=== PATIENT | male | born 1935 | race Caucasian/White ===

== ENCOUNTER 2022-08-07 14:49 | Inpatient (IN) | payer OTHER ==
[2022-08-07] MEDS ORDERED: ACETAMINOPHEN 1000 MG/100 ML BAG IVPB ONE (15:46)
[2022-08-07] MEDS ORDERED: ACETAMINOPHEN INJECTION 100 ML IVPB ONE (15:54)
[2022-08-07] MEDS ORDERED: VANCOMYCIN 1 GM in D5W (PRE-DOCKED) 1,000 MG/250 ML IVPB ONE (15:58)
[2022-08-07] MEDS ORDERED: PIPERACILLIN/TAZOB 3.375 GM 3.375 GM in DEXTROSE 5%-WATER - 50 ML IVPB ONE (15:59)
[2022-08-07] MEDS ORDERED: AZITHROMYCIN IVPB 500 MG in DEXTROSE 5%-WATER - 250 ML IVPB ONE (16:00)
[2022-08-07] MEDS ORDERED: VANCOMYCIN/WATER FOR INJ (PEG) 1,000 MG/200 ML BAG IVPB ONE (16:13)
[2022-08-07] MEDS ORDERED: PIPERACILLIN/TAZOB 3.375 GM 3.375 GM/50 ML BAG IVPB ONE (16:14)
[2022-08-07] MEDS ORDERED: AZITHROMYCIN IVPB 500 MG/250 ML BAG IVPB ONE (16:14)
[2022-08-07 16:38] LABS: VENOUS O2 SATURATION 92.2 % (70-80); VENOUS PCO2 40.5 mmHg (38-52); VENOUS PH 7.341 (7.310-7.410)
[2022-08-07 16:40] LABS: BASO % 0.1 % (0-2.0); EOS % 0.1 % (0-4.5); HEMATOCRIT 24.8 % (35.4-49); HEMOGLOBIN 8.3 GM/dL (11.7-16.9); LYMPH % 9.1 % (8-40); MCH 29.9 pg (25.7-33.7); MCHC 33.4 g/dl (32.0-35.9); MEAN CELL VOLUME 89.4 fl (80-96); MEAN PLT VOLUME 7.9 fl (7.5-11.1); MONO % 7.9 % (3.8-10.2); NEUT % 82.8 % (42.8-82.8); PLATELET COUNT 345 10^3/uL (134-434); RBC 2.78 M/mm3 (4.00-5.60); RDW 18.9 % (11.9-15.9); WHITE BLOOD COUNT 15.9 K/mm3 (4.0-10.0)
[2022-08-07 16:49] LABS: INR 1.51 (0.83-1.09); PROTHROMBIN TIME (PATIENT) 17.4 SEC (9.7-13.0)
[2022-08-07 16:52] LABS: ACTIVATED PTT 37.7 SECONDS (25.2-36.5)
[2022-08-07 17:08] LABS: ALBUMIN 1.9 g/dl (3.4-5.0); CALCIUM 8.8 mg/dL (8.5-10.1)
[2022-08-07 17:12] LABS: BILIRUBIN,TOTAL 0.4 mg/dL (0.2-1)
[2022-08-07] MEDS ORDERED: CALCIUM GLUC IN NACL, ISO-OSM 1 GM/50 ML BAG IVPB ONE ×2 (17:14→17:16)
[2022-08-07 18:50] LABS: EPI CELLS >36 /uL (0-25.1); HYALINE CASTS 24 /uL (0-3.1); URINE APPEARANCE CLOUDY; URINE BILIRUBIN NEGATIVE (NEGATIVE); URINE COLOR YELLOW; URINE GLUCOSE (UA) NEGATIVE (NEGATIVE); URINE KETONE NEGATIVE (NEGATIVE); URINE LEUK ESTERASE NEGATIVE (NEGATIVE); URINE NITRITE NEGATIVE (NEGATIVE); URINE PROTEIN 2+ (NEGATIVE); URINE UROBILINOGEN 0.2 mg/dL (0.2-1.0)
[2022-08-07] MEDS: LACTATED RINGERS SOLUTION 1,000 ML/1,000 ML INFUS.BAG IV SCH ×2 (18:54→23:30)
[2022-08-07 19:48] LABS: URINE BACTERIA 228.2 /uL (0-1359); URINE RBC 97.7 /uL (0-23.9); URINE WBC 904.5 /uL (0-25.8)
[2022-08-07] MEDS ORDERED: PANTOPRAZOLE SODIUM 40 MG VIAL IVPUSH STA (22:13)
[2022-08-07] MEDS ORDERED: PANTOPRAZOLE SODIUM 40 MG VIAL ONE (22:23)
[2022-08-07] MEDS ORDERED: ACETAMINOPHEN 650 MG/20.3 ML ORAL SOLUTION (CUPS) PO PRN (22:30)
[2022-08-07] MEDS: MUPIROCIN 2% TOPICAL OINTMENT FOR DECOLONIZATION NS SCH (23:25)
[2022-08-07] MEDS: CHLORHEXIDINE GLUCONATE 4% CLEANSER FOR DECOLONIZATION TP SCH (23:26)
[2022-08-07 23:36] LABS: BASO % 0.2 % (0-2.0); EOS % 0.8 % (0-4.5); HEMATOCRIT 24.4 % (35.4-49); LYMPH % 9.2 % (8-40); MCH 29.1 pg (25.7-33.7); MCHC 32.8 g/dl (32.0-35.9); MEAN CELL VOLUME 88.7 fl (80-96); MEAN PLT VOLUME 7.6 fl (7.5-11.1); MONO % 7.4 % (3.8-10.2); NEUT % 82.4 % (42.8-82.8); PLATELET COUNT 311 10^3/uL (134-434); RBC 2.76 M/mm3 (4.00-5.60); RDW 19.2 % (11.9-15.9); WHITE BLOOD COUNT 13.2 K/mm3 (4.0-10.0)
[2022-08-07 23:57] LABS: CALCIUM 8.5 mg/dL (8.5-10.1)
[2022-08-07 23:59] LABS: ALBUMIN 1.9 g/dl (3.4-5.0); BLOOD UREA NITROGEN 86.1 mg/dL (7-18); MAGNESIUM 1.7 mg/dL (1.8-2.4)
[2022-08-08 00:02] LABS: BILIRUBIN,DIRECT 0.3 mg/dL (0.0-0.2); CREATININE 1.9 mg/dL (0.55-1.3); PHOSPHOROUS 3.3 mg/dL (2.5-4.9)
[2022-08-08 00:03] LABS: BILIRUBIN,TOTAL 0.5 mg/dL (0.2-1); TOT PROT 6.9 g/dl (6.4-8.2)
[2022-08-08] MEDS: DEXMEDETOMIDINE PREMIX 400 MCG/100 ML BAG IVPB SCH ×2 (00:58→14:53)
[2022-08-08] MEDS: PIPERACILLIN/TAZOB 4.5 GM 4.5 GM in DEXTROSE 5%-WATER 100 ML IVPB SCH ×2 (01:00→09:57)
[2022-08-08] MEDS ORDERED: PIPERACILLIN/TAZOBACTAM 4.5 GM VIAL IVPB SCH (02:00)
[2022-08-08] MEDS: HEPARIN NA (PORCINE) 5,000 UNITS/ML 1ML VIAL SQ SCH ×3 (05:07→21:13)
[2022-08-08 07:13] LABS: BASO % 0.2 % (0-2.0); EOS % 1.2 % (0-4.5); HEMATOCRIT 24.9 % (35.4-49); HEMOGLOBIN 8.2 GM/dL (11.7-16.9); LYMPH % 10.3 % (8-40); MCH 29.2 pg (25.7-33.7); MCHC 32.8 g/dl (32.0-35.9); MEAN CELL VOLUME 89.1 fl (80-96); MEAN PLT VOLUME 8.1 fl (7.5-11.1); MONO % 5.9 % (3.8-10.2); NEUT % 82.4 % (42.8-82.8); PLATELET COUNT 312 10^3/uL (134-434); RBC 2.79 M/mm3 (4.00-5.60); RDW 18.8 % (11.9-15.9); WHITE BLOOD COUNT 10.5 K/mm3 (4.0-10.0)
[2022-08-08 07:19] LABS: MAGNESIUM 1.6 mg/dL (1.8-2.4)
[2022-08-08] MEDS ORDERED: MAGNESIUM SULFATE IN WATER 2 GM/50 ML IVPB IVPB ONE (08:30)
[2022-08-08] MEDS: ALBUTEROL SO4 2.5/IPRATROPIUM 0.5 INH SOL 3 ML VIAL.NEB. NEB SCH ×4 (08:50→21:05)
[2022-08-08] MEDS ORDERED: TAMSULOSIN HCL 0.4 MG CAP PO ONE (09:00)
[2022-08-08] MEDS: SODIUM ZIRCONIUM CYCLOSILICATE (LOKELMA) 5 GM PACKET PO SCH (09:59)
[2022-08-08] MEDS ORDERED: AZITHROMYCIN IVPB 500 MG in DEXTROSE 5%-WATER - 250 ML IVPB SCH (10:00)
[2022-08-08] MEDS: MUPIROCIN 2% TOPICAL OINTMENT FOR DECOLONIZATION NS SCH ×2 (10:01→21:13)
[2022-08-08] MEDS: POLYETHYLENE GLYCOL (HEALTHYLAX) 3350 17 GM PACKET PO SCH (10:01)
[2022-08-08] MEDS: ASPIRIN 81 MG CHEWABLE TABLETS PO SCH (10:01)
[2022-08-08] MEDS: metoPROLOL SUCCINATE 25 MG TAB.SR.24H (FP) PO SCH ×2 (10:02→21:14)
[2022-08-08 10:03] LABS: BLOOD UREA NITROGEN 85.9 mg/dL (7-18); CALCIUM 8.8 mg/dL (8.5-10.1)
[2022-08-08 10:07] LABS: CREATININE 1.9 mg/dL (0.55-1.3)
[2022-08-08] MEDS ORDERED: AZITHROMYCIN IVPB 500 MG/250 ML BAG IVPB SCH (10:09)
[2022-08-08 10:10] LABS: N-TERMINAL BNP 3474.8 pg/ml (5-450)
[2022-08-08] MEDS: AZITHROMYCIN IVPB 500 MG/250 ML BAG IVPB SCH (11:44)
[2022-08-08] MEDS ORDERED: VANCOMYCIN 1 GM/200 ML PREMIX BAG IVPB ONE (12:03)
[2022-08-08] MEDS: PIPERACILLIN/TAZOB 2.25 GM 2.25 GM in DEXTROSE 5%-WATER - 50 ML IVPB SCH (17:23)
[2022-08-08] MEDS: LACTATED RINGERS SOLUTION 1,000 ML/1,000 ML INFUS.BAG IV SCH (21:12)
[2022-08-08] MEDS: CHLORHEXIDINE GLUCONATE 4% CLEANSER FOR DECOLONIZATION TP SCH (21:14)
[2022-08-09] MEDS: LACTATED RINGERS SOLUTION 1,000 ML/1,000 ML INFUS.BAG IV SCH
[2022-08-09] MEDS: DEXMEDETOMIDINE PREMIX 400 MCG/100 ML BAG IVPB SCH
[2022-08-09] MEDS: PIPERACILLIN/TAZOB 2.25 GM 2.25 GM in DEXTROSE 5%-WATER - 50 ML IVPB SCH ×3 (01:21→17:02)
[2022-08-09] MEDS: HEPARIN NA (PORCINE) 5,000 UNITS/ML 1ML VIAL SQ SCH (05:15)
[2022-08-09 07:31] LABS: BASO % 0.4 % (0-2.0); EOS % 5.5 % (0-4.5); HEMATOCRIT 23.6 % (35.4-49); HEMOGLOBIN 7.6 GM/dL (11.7-16.9); MCH 29.2 pg (25.7-33.7); MCHC 32.3 g/dl (32.0-35.9); MEAN CELL VOLUME 90.4 fl (80-96); MEAN PLT VOLUME 8.1 fl (7.5-11.1); MONO % 6.6 % (3.8-10.2); NEUT % 74.5 % (42.8-82.8); PLATELET COUNT 284 10^3/uL (134-434); RBC 2.62 M/mm3 (4.00-5.60); RDW 19.1 % (11.9-15.9); WHITE BLOOD COUNT 8.4 K/mm3 (4.0-10.0)
[2022-08-09 07:54] LABS: ALBUMIN 1.6 g/dl (3.4-5.0); BLOOD UREA NITROGEN 79.5 mg/dL (7-18); MAGNESIUM 2.2 mg/dL (1.8-2.4)
[2022-08-09 07:57] LABS: BILIRUBIN,TOTAL 0.3 mg/dL (0.2-1); CREATININE 1.9 mg/dL (0.55-1.3); TOT PROT 6.2 g/dl (6.4-8.2)
[2022-08-09] MEDS: PROPOFOL 1,000,000 MCG/100 ML VIAL IVPB SCH ×2 (08:56→23:39)
[2022-08-09] MEDS: AZITHROMYCIN IVPB 500 MG/250 ML BAG IVPB SCH (09:21)
[2022-08-09] MEDS: ASPIRIN 81 MG CHEWABLE TABLETS PO SCH (09:23)
[2022-08-09] MEDS: APIXABAN 2.5 MG TABLET PO SCH ×2 (09:23→21:23)
[2022-08-09] MEDS: MUPIROCIN 2% TOPICAL OINTMENT FOR DECOLONIZATION NS SCH ×2 (09:23→21:23)
[2022-08-09] MEDS: SODIUM ZIRCONIUM CYCLOSILICATE (LOKELMA) 5 GM PACKET PO SCH (09:23)
[2022-08-09] MEDS: metoPROLOL SUCCINATE 25 MG TAB.SR.24H (FP) PO SCH ×2 (09:23→21:23)
[2022-08-09] MEDS: POLYETHYLENE GLYCOL (HEALTHYLAX) 3350 17 GM PACKET PO SCH (09:24)
[2022-08-09] MEDS: FENTANYL NS IVPB 500 MCG/100 ML BAG IVPB SCH ×3 (09:28→19:57)
[2022-08-09] MEDS: ALBUTEROL SO4 2.5/IPRATROPIUM 0.5 INH SOL 3 ML VIAL.NEB. NEB SCH ×4 (10:58→20:30)
[2022-08-09] MEDS ORDERED: NOREPINEPHRINE BITARTRATE 4 MG/4 ML ML IV ONE (17:33)
[2022-08-09] MEDS ORDERED: NOREPINEPHRINE BITARTRATE/D5W 8 MG/250 ML BAG IVPB SCH ×3 (17:45→20:00)
[2022-08-09] MEDS ORDERED: LACTATED RINGERS SOLUTION 1,000 ML/1,000 ML INFUS.BAG IV ONE (19:57)
[2022-08-09] MEDS: WATER IVPB SCH (21:25)
[2022-08-09] MEDS: DEXTROSE 5% IVPB SCH (21:25)
[2022-08-09] MEDS: NOREPINEPHRINE BITARTRATE IVPB SCH (21:25)
[2022-08-09] MEDS: CHLORHEXIDINE GLUCONATE 4% CLEANSER FOR DECOLONIZATION TP SCH (21:25)
[2022-08-10] MEDS: VANCOMYCIN 250 MG/5 ML ORAL SOLUTION PO SCH ×4 (01:07→19:15)
[2022-08-10] MEDS: PIPERACILLIN/TAZOB 2.25 GM 2.25 GM in DEXTROSE 5%-WATER - 50 ML IVPB SCH ×3 (01:57→18:45)
[2022-08-10] MEDS: ALBUTEROL SO4 2.5/IPRATROPIUM 0.5 INH SOL 3 ML VIAL.NEB. NEB SCH ×4 (07:30→20:45)
[2022-08-10 08:37] LABS: BLOOD UREA NITROGEN 81.7 mg/dL (7-18); MAGNESIUM 2.1 mg/dL (1.8-2.4)
[2022-08-10] MEDS: FENTANYL NS IVPB 500 MCG/100 ML BAG IVPB SCH (09:30)
[2022-08-10 09:55] LABS: HEMATOCRIT 26.1 % (35.4-49); HEMOGLOBIN 8.7 GM/dL (11.7-16.9); MCHC 33.2 g/dl (32.0-35.9); MEAN CELL VOLUME 90.3 fl (80-96); MEAN PLT VOLUME 7.8 fl (7.5-11.1); PLATELET COUNT 334 10^3/uL (134-434); RBC 2.89 M/mm3 (4.00-5.60); RDW 19.5 % (11.9-15.9); WHITE BLOOD COUNT 9.8 K/mm3 (4.0-10.0)
[2022-08-10] MEDS: AZITHROMYCIN IVPB 500 MG/250 ML BAG IVPB SCH (10:00)
[2022-08-10] MEDS: APIXABAN 2.5 MG TABLET PO SCH ×2 (11:13→21:34)
[2022-08-10] MEDS: MUPIROCIN 2% TOPICAL OINTMENT FOR DECOLONIZATION NS SCH ×2 (11:14→21:31)
[2022-08-10] MEDS: ASPIRIN 81 MG CHEWABLE TABLETS PO SCH (11:15)
[2022-08-10] MEDS: POLYETHYLENE GLYCOL (HEALTHYLAX) 3350 17 GM PACKET PO SCH (11:15)
[2022-08-10] MEDS: PANTOPRAZOLE SODIUM 40 MG VIAL IVPUSH SCH (11:15)
[2022-08-10] MEDS: SODIUM ZIRCONIUM CYCLOSILICATE (LOKELMA) 5 GM PACKET PO SCH (11:16)
[2022-08-10] MEDS: metoPROLOL SUCCINATE 25 MG TAB.SR.24H (FP) PO SCH ×2 (11:16→21:34)
[2022-08-10] MEDS: PROPOFOL 1,000,000 MCG/100 ML VIAL IVPB SCH (19:14)
[2022-08-10] MEDS: NOREPINEPHRINE BITARTRATE IVPB SCH (21:31)
[2022-08-10] MEDS: WATER IVPB SCH (21:31)
[2022-08-10] MEDS: DEXTROSE 5% IVPB SCH (21:31)
[2022-08-10] MEDS: CHLORHEXIDINE GLUCONATE 4% CLEANSER FOR DECOLONIZATION TP SCH (21:32)
[2022-08-11] MEDS: VANCOMYCIN 250 MG/5 ML ORAL SOLUTION PO SCH ×5 (00:27→23:59)
[2022-08-11] MEDS: PIPERACILLIN/TAZOB 2.25 GM 2.25 GM in DEXTROSE 5%-WATER - 50 ML IVPB SCH ×3 (01:26→17:41)
[2022-08-11] MEDS: ALBUTEROL SO4 2.5/IPRATROPIUM 0.5 INH SOL 3 ML VIAL.NEB. NEB SCH ×4 (08:05→19:49)
[2022-08-11 08:29] LABS: HEMATOCRIT 24.3 % (35.4-49); HEMOGLOBIN 8.2 GM/dL (11.7-16.9); MCH 30.3 pg (25.7-33.7); MCHC 33.8 g/dl (32.0-35.9); MEAN CELL VOLUME 89.7 fl (80-96); MEAN PLT VOLUME 7.3 fl (7.5-11.1); PLATELET COUNT 295 10^3/uL (134-434); RBC 2.71 M/mm3 (4.00-5.60); RDW 18.9 % (11.9-15.9); WHITE BLOOD COUNT 10.4 K/mm3 (4.0-10.0)
[2022-08-11 08:36] LABS: INR 1.21 (0.83-1.09)
[2022-08-11 08:46] LABS: BLOOD UREA NITROGEN 65.9 mg/dL (7-18); CALCIUM 8.1 mg/dL (8.5-10.1)
[2022-08-11 08:49] LABS: CREATININE 1.8 mg/dL (0.55-1.3); PHOSPHOROUS 4.6 mg/dL (2.5-4.9)
[2022-08-11 08:50] LABS: BILIRUBIN,TOTAL 0.3 mg/dL (0.2-1); TOT PROT 7.1 g/dl (6.4-8.2)
[2022-08-11] MEDS: ASPIRIN 81 MG CHEWABLE TABLETS PO SCH (09:41)
[2022-08-11] MEDS: APIXABAN 2.5 MG TABLET PO SCH ×2 (09:41→21:22)
[2022-08-11] MEDS: PANTOPRAZOLE SODIUM 40 MG VIAL IVPUSH SCH (09:42)
[2022-08-11] MEDS: POLYETHYLENE GLYCOL (HEALTHYLAX) 3350 17 GM PACKET PO SCH (09:42)
[2022-08-11] MEDS: metoPROLOL SUCCINATE 25 MG TAB.SR.24H (FP) PO SCH ×2 (09:42→21:22)
[2022-08-11] MEDS: MUPIROCIN 2% TOPICAL OINTMENT FOR DECOLONIZATION NS SCH (09:42)
[2022-08-11] MEDS: SODIUM ZIRCONIUM CYCLOSILICATE (LOKELMA) 5 GM PACKET PO SCH (09:42)
[2022-08-11] MEDS: FENTANYL NS IVPB 500 MCG/100 ML BAG IVPB SCH (09:42)
[2022-08-11 09:49] LABS: ANISOCYTOSIS 0; MACROCYTOSIS 0
[2022-08-11] MEDS ORDERED: LORazepam 2 MG/ML SDV VIAL IVPUSH ONE (19:57)
[2022-08-11] MEDS: CHLORHEXIDINE GLUCONATE 4% CLEANSER FOR DECOLONIZATION TP SCH (21:22)
[2022-08-12] MEDS: PIPERACILLIN/TAZOB 2.25 GM 2.25 GM in DEXTROSE 5%-WATER - 50 ML IVPB SCH ×3 (01:31→17:51)
[2022-08-12] MEDS: VANCOMYCIN 250 MG/5 ML ORAL SOLUTION PO SCH ×4 (05:46→23:04)
[2022-08-12 07:40] LABS: HEMATOCRIT 27.3 % (35.4-49); HEMOGLOBIN 8.9 GM/dL (11.7-16.9); MCH 29.4 pg (25.7-33.7); MCHC 32.7 g/dl (32.0-35.9); MEAN CELL VOLUME 89.9 fl (80-96); MEAN PLT VOLUME 7.7 fl (7.5-11.1); PLATELET COUNT 317 10^3/uL (134-434); RBC 3.03 M/mm3 (4.00-5.60); RDW 18.7 % (11.9-15.9); WHITE BLOOD COUNT 9.7 K/mm3 (4.0-10.0)
[2022-08-12] MEDS: ALBUTEROL SO4 2.5/IPRATROPIUM 0.5 INH SOL 3 ML VIAL.NEB. NEB SCH ×4 (07:59→20:35)
[2022-08-12 08:05] LABS: BLOOD UREA NITROGEN 62.2 mg/dL (7-18); CALCIUM 8.5 mg/dL (8.5-10.1)
[2022-08-12 08:08] LABS: BILIRUBIN,TOTAL 0.3 mg/dL (0.2-1); CREATININE 1.7 mg/dL (0.55-1.3); TOT PROT 7.1 g/dl (6.4-8.2)
[2022-08-12] MEDS: APIXABAN 2.5 MG TABLET PO SCH ×2 (09:45→21:26)
[2022-08-12] MEDS: PANTOPRAZOLE SODIUM 40 MG VIAL IVPUSH SCH (09:45)
[2022-08-12] MEDS: POLYETHYLENE GLYCOL (HEALTHYLAX) 3350 17 GM PACKET PO SCH (09:45)
[2022-08-12] MEDS: metoPROLOL SUCCINATE 25 MG TAB.SR.24H (FP) PO SCH ×2 (09:45→21:27)
[2022-08-12 10:04] LABS: ANISOCYTOSIS 0; HELMET CELLS 0; HOWELL-JOLLY BODIES 0; MACROCYTOSIS 0; OVALOCYTE 0; ROULEAU 0; SICKELED CELLS 0; TARGET CELLS 0; TEAR DROP CELLS 0; TOXIC GRANULATION 0
[2022-08-12] MEDS: CHLORHEXIDINE GLUCONATE 4% CLEANSER FOR DECOLONIZATION TP SCH (21:27)
[2022-08-13] MEDS ORDERED: ACETAMINOPHEN 650 MG/20.3 ML ORAL SOLUTION (CUPS) PO PRN (00:22)
[2022-08-13] MEDS: PIPERACILLIN/TAZOB 2.25 GM 2.25 GM in DEXTROSE 5%-WATER - 50 ML IVPB SCH ×3 (01:53→17:11)
[2022-08-13] MEDS: ALBUTEROL SO4 2.5/IPRATROPIUM 0.5 INH SOL 3 ML VIAL.NEB. NEB SCH ×4 (07:01→20:00)
[2022-08-13] MEDS: POLYETHYLENE GLYCOL (HEALTHYLAX) 3350 17 GM PACKET PO SCH (09:49)
[2022-08-13] MEDS: APIXABAN 2.5 MG TABLET PO SCH ×2 (09:49→22:30)
[2022-08-13] MEDS: PANTOPRAZOLE SODIUM 40 MG VIAL IVPUSH SCH (09:49)
[2022-08-13] MEDS ORDERED: metoPROLOL SUCCINATE 25 MG TAB.SR.24H (FP) PO SCH (10:00)
[2022-08-13] MEDS: amLODIPine BESYLATE 5 MG TABLET (FP) PO SCH (10:02)
[2022-08-13] MEDS: METOPROLOL TARTRATE 25 MG TABLET (FP) PO SCH ×2 (10:02→22:30)
[2022-08-13] MEDS: QUEtiapine FUMARATE 25 MG TABLET PO SCH ×2 (11:48→22:30)
[2022-08-13 11:58] LABS: ALBUMIN 1.9 g/dl (3.4-5.0); BLOOD UREA NITROGEN 58.5 mg/dL (7-18); CALCIUM 8.4 mg/dL (8.5-10.1)
[2022-08-13 12:01] LABS: CREATININE 1.6 mg/dL (0.55-1.3)
[2022-08-13 12:03] LABS: BILIRUBIN,TOTAL 0.4 mg/dL (0.2-1); TOT PROT 6.8 g/dl (6.4-8.2)
[2022-08-13] MEDS ORDERED: CHLORHEXIDINE GLUCONATE 4% CLEANSER FOR DECOLONIZATION TP SCH (22:00)
[2022-08-14] MEDS: PIPERACILLIN/TAZOB 2.25 GM 2.25 GM in DEXTROSE 5%-WATER - 50 ML IVPB SCH ×3 (01:53→17:00)
[2022-08-14] MEDS: ALBUTEROL SO4 2.5/IPRATROPIUM 0.5 INH SOL 3 ML VIAL.NEB. NEB SCH ×4 (08:15→20:04)
[2022-08-14] MEDS: PANTOPRAZOLE SODIUM 40 MG VIAL IVPUSH SCH (09:30)
[2022-08-14] MEDS: POLYETHYLENE GLYCOL (HEALTHYLAX) 3350 17 GM PACKET PO SCH (09:30)
[2022-08-14] MEDS: METOPROLOL TARTRATE 25 MG TABLET (FP) PO SCH ×2 (09:36→22:05)
[2022-08-14] MEDS: QUEtiapine FUMARATE 25 MG TABLET PO SCH ×2 (09:36→22:05)
[2022-08-14] MEDS: amLODIPine BESYLATE 5 MG TABLET (FP) PO SCH (09:36)
[2022-08-14] MEDS: APIXABAN 2.5 MG TABLET PO SCH ×2 (09:36→22:05)
[2022-08-14] MEDS: SODIUM ZIRCONIUM CYCLOSILICATE (LOKELMA) 5 GM PACKET PO SCH (13:35)
[2022-08-14] MEDS: PROPOFOL 1,000,000 MCG/100 ML VIAL IVPB SCH (13:36)
[2022-08-15] MEDS: PIPERACILLIN/TAZOB 2.25 GM 2.25 GM in DEXTROSE 5%-WATER - 50 ML IVPB SCH ×3 (01:22→17:17)
[2022-08-15] MEDS: ALBUTEROL SO4 2.5/IPRATROPIUM 0.5 INH SOL 3 ML VIAL.NEB. NEB SCH ×4 (08:10→20:05)
[2022-08-15] MEDS: PANTOPRAZOLE SODIUM 40 MG VIAL IVPUSH SCH (09:42)
[2022-08-15] MEDS: METOPROLOL TARTRATE 25 MG TABLET (FP) PO SCH ×2 (09:42→21:03)
[2022-08-15] MEDS: amLODIPine BESYLATE 5 MG TABLET (FP) PO SCH (09:42)
[2022-08-15] MEDS: QUEtiapine FUMARATE 25 MG TABLET PO SCH ×2 (09:42→21:04)
[2022-08-15] MEDS: APIXABAN 2.5 MG TABLET PO SCH ×2 (09:43→21:03)
[2022-08-15] MEDS: POLYETHYLENE GLYCOL (HEALTHYLAX) 3350 17 GM PACKET PO SCH (09:43)
[2022-08-15 15:51] LABS: BASO % 0.3 % (0-2.0); EOS % 2.9 % (0-4.5); HEMATOCRIT 26.7 % (35.4-49); LYMPH % 15.1 % (8-40); MCH 29.8 pg (25.7-33.7); MCHC 33.7 g/dl (32.0-35.9); MEAN CELL VOLUME 88.3 fl (80-96); MEAN PLT VOLUME 7.1 fl (7.5-11.1); NEUT % 72.7 % (42.8-82.8); PLATELET COUNT 215 10^3/uL (134-434); RBC 3.03 M/mm3 (4.00-5.60); RDW 18.8 % (11.9-15.9)
[2022-08-15 16:13] LABS: CALCIUM 8.3 mg/dL (8.5-10.1)
[2022-08-15 16:14] LABS: BLOOD UREA NITROGEN 50.3 mg/dL (7-18)
[2022-08-15 16:17] LABS: CREATININE 1.5 mg/dL (0.55-1.3)
[2022-08-15 16:18] LABS: BILIRUBIN,TOTAL 0.3 mg/dL (0.2-1); TOT PROT 6.9 g/dl (6.4-8.2)
[2022-08-16] MEDS: PIPERACILLIN/TAZOB 2.25 GM 2.25 GM in DEXTROSE 5%-WATER - 50 ML IVPB SCH ×2 (01:49→09:51)
[2022-08-16] MEDS: ALBUTEROL SO4 2.5/IPRATROPIUM 0.5 INH SOL 3 ML VIAL.NEB. NEB SCH ×3 (08:10→15:04)
[2022-08-16] MEDS: POLYETHYLENE GLYCOL (HEALTHYLAX) 3350 17 GM PACKET PO SCH (09:51)
[2022-08-16] MEDS: METOPROLOL TARTRATE 25 MG TABLET (FP) PO SCH (09:51)
[2022-08-16] MEDS: QUEtiapine FUMARATE 25 MG TABLET PO SCH (09:51)
[2022-08-16] MEDS: amLODIPine BESYLATE 5 MG TABLET (FP) PO SCH (09:52)
[2022-08-16] MEDS: APIXABAN 2.5 MG TABLET PO SCH (09:52)
[2022-08-16] MEDS ORDERED: FAMOTIDINE 40 MG/5 ML ORAL SUSPENSION PEG SCH (10:00)
[2022-08-16 15:39] VITALS: BP 148/68; PULSE 84; RESP 20; TEMP 97.8
[2022-08-17 14:07] LABS: ALBUMIN % 46.4 % (.); ALPHA-1 FOR UPE 2.3 % (.)
== END 2022-08-16 18:02 | DRG 870 ==
LOC: JER 14:49 → JERBED 17:01 → JICU 22:56 → J5S 08-13 00:04
PROVIDERS: ADMIT Internal Medicine Pulmonary Disease; ATTEND Family Medicine
PROC: 5A1955Z Respiratory Ventilation, Greater than 96 Consecutive Hours (ICD-10-PCS; principal; 2022-08-07)
DX: A41.9 Sepsis, unspecified organism (principal); R65.21 Severe sepsis with septic shock; J96.20 Acute and chronic respiratory failure, unspecified whether with hypoxia or hypercapnia; J18.9 Pneumonia, unspecified organism; Z99.11 Dependence on respirator [ventilator] status; N17.9 Acute kidney failure, unspecified; J95.851 Ventilator associated pneumonia; N39.0 Urinary tract infection, site not specified; E87.0 Hyperosmolality and hypernatremia; I25.10 Atherosclerotic heart disease of native coronary artery without angina pectoris; I12.9 Hypertensive chronic kidney disease with stage 1 through stage 4 chronic kidney disease, or unspecified chronic kidney disease; N18.9 Chronic kidney disease, unspecified; Z93.0 Tracheostomy status; D64.9 Anemia, unspecified; Y83.8 Other surgical procedures as the cause of abnormal reaction of the patient, or of later complication, without mention of misadventure at the time of the procedure; E87.5 Hyperkalemia; D63.8 Anemia in other chronic diseases classified elsewhere
CPT/HCPCS: 0241U-QW; 36415; 71045-TC-FY; 71250-TC; 74176-TC; 80048; 80053; 80076; 81003; 82272; 82308; 82436; 82550; 82553; 82570; 82728; 82803; 82962; 83540; 83550; 83605; 83735; 83880; 84100; 84133; 84156; 84166; 84300; 84466; 84484; 85025; 85027; 85045; 85610; 85730; 86140; 86850; 86900; 86901; 87040; 87070; 87077; 87086; 87186; 87205; 87899; 93005; 93010; 94002; 94640; 99285-25; C9803-CS; G0480; J1644; U0003; U0005

== ENCOUNTER 2022-08-29 06:55 | Inpatient (IN) | payer OTHER ==
[2022-08-29] MEDS: ALBUTEROL SO4 2.5/IPRATROPIUM 0.5 INH SOL 3 ML VIAL.NEB. NEB SCH ×2 (08:15→22:12)
[2022-08-29 09:36] LABS: BASO % 0.4 % (0-2.0); EOS % 1.6 % (0-4.5); HEMATOCRIT 22.3 % (35.4-49); HEMOGLOBIN 7.7 GM/dL (11.7-16.9); LYMPH % 13.8 % (8-40); MCH 30.5 pg (25.7-33.7); MCHC 34.3 g/dl (32.0-35.9); MEAN PLT VOLUME 7.6 fl (7.5-11.1); MONO % 7.6 % (3.8-10.2); NEUT % 76.6 % (42.8-82.8); PLATELET COUNT 277 10^3/uL (134-434); RBC 2.51 M/mm3 (4.00-5.60); RDW 19.6 % (11.9-15.9); WHITE BLOOD COUNT 14.5 K/mm3 (4.0-10.0)
[2022-08-29 09:37] LABS: ALBUMIN 2.3 g/dl (3.4-5.0); BLOOD UREA NITROGEN 54.2 mg/dL (7-18); CALCIUM 8.6 mg/dL (8.5-10.1)
[2022-08-29 09:40] LABS: CREATININE 1.5 mg/dL (0.55-1.3)
[2022-08-29 09:42] LABS: BILIRUBIN,TOTAL 0.6 mg/dL (0.2-1); TOT PROT 7.6 g/dl (6.4-8.2)
[2022-08-29 09:49] LABS: INR 1.28 (0.83-1.09); PROTHROMBIN TIME (PATIENT) 14.7 SEC (9.7-13.0)
[2022-08-29 09:51] LABS: ACTIVATED PTT 36.6 SECONDS (25.2-36.5)
[2022-08-29] MEDS ORDERED: LORazepam 2 MG/ML SDV VIAL IVPUSH ONE (12:04)
[2022-08-29] MEDS ORDERED: HALOPERIDOL LACTATE 5 MG/ML IM ONE ×2 (12:55→13:02)
[2022-08-29] MEDS ORDERED: SODIUM CHLORIDE 0.9% 500 ML INFUS.BAG IV ONE ×2 (14:36→15:07)
[2022-08-29] MEDS ORDERED: VANCOMYCIN 1 GM in D5W (PRE-DOCKED) 1,000 MG/250 ML IVPB ONE (14:51)
[2022-08-29 14:58] LABS: EPI CELLS 3 /uL (0-25.1); HYALINE CASTS 1 /uL (0-3.1); URINE APPEARANCE CLOUDY; URINE BACTERIA 533 /uL (0-1359); URINE BILIRUBIN NEGATIVE (NEGATIVE); URINE COLOR YELLOW; URINE GLUCOSE (UA) NEGATIVE (NEGATIVE); URINE KETONE NEGATIVE (NEGATIVE); URINE LEUK ESTERASE 3+ (NEGATIVE); URINE NITRITE NEGATIVE (NEGATIVE); URINE PROTEIN 3+ (NEGATIVE); URINE UROBILINOGEN 0.2 mg/dL (0.2-1.0); URINE WBC 2477 /uL (0-25.8)
[2022-08-29] MEDS ORDERED: ACETAMINOPHEN 1000 MG/100 ML BAG IVPB ONE (15:03)
[2022-08-29] MEDS ORDERED: ACETAMINOPHEN INJECTION 100 ML IVPB ONE ×2 (15:11→23:15)
[2022-08-29] MEDS ORDERED: PIPERACILLIN/TAZOB 3.375 GM 3.375 GM in DEXTROSE 5%-WATER - 50 ML IVPB ONE (15:16)
[2022-08-29] MEDS ORDERED: PIPERACILLIN/TAZOB 3.375 GM 3.375 GM/50 ML BAG IVPB ONE (15:53)
[2022-08-29] MEDS ORDERED: VANCOMYCIN/WATER FOR INJ (PEG) 1,000 MG/200 ML BAG IVPB ONE (16:12)
[2022-08-29 16:37] LABS: URINE RBC 133.4 /uL (0-23.9)
[2022-08-29] MEDS ORDERED: ACETAMINOPHEN 1000 MG/100 ML BAG IVPB PRN (21:50)
[2022-08-29] MEDS ORDERED: APIXABAN 2.5 MG TABLET ONE (22:03)
[2022-08-29] MEDS ORDERED: METOPROLOL TARTRATE 25 MG TABLET (FP) ONE (22:03)
[2022-08-29] MEDS ORDERED: QUEtiapine FUMARATE 25 MG TABLET ONE (22:03)
[2022-08-29] MEDS: APIXABAN 2.5 MG TABLET PO SCH (22:12)
[2022-08-29] MEDS: QUEtiapine FUMARATE 25 MG TABLET PO SCH (22:12)
[2022-08-29] MEDS: METOPROLOL TARTRATE 25 MG TABLET (FP) PO SCH (22:12)
[2022-08-29] MEDS ORDERED: PIPERACILLIN/TAZOB 2.25 GM 2.25 GM in DEXTROSE 5%-WATER - 50 ML IVPB SCH (22:28)
[2022-08-29] MEDS ORDERED: PIPERACILLIN/TAZOB 2.25 GM 2.25 GM/50 ML BAG IVPB ONE (23:15)
[2022-08-30] MEDS: PIPERACILLIN/TAZOB 2.25 GM 2.25 GM in DEXTROSE 5%-WATER - 50 ML IVPB SCH ×6 (00:01→23:14)
[2022-08-30] MEDS ORDERED: VANCOMYCIN/WATER FOR INJ (PEG) 1,000 MG/200 ML BAG IVPB SCH (04:00)
[2022-08-30] MEDS ORDERED: VANCOMYCIN/WATER FOR INJ (PEG) 1,000 MG/200 ML BAG IVPB ONE (04:16)
[2022-08-30] MEDS ORDERED: PIPERACILLIN/TAZOB 2.25 GM 2.25 GM/50 ML BAG IVPB ONE ×4 (04:17→22:56)
[2022-08-30] MEDS: ALBUTEROL SO4 2.5/IPRATROPIUM 0.5 INH SOL 3 ML VIAL.NEB. NEB SCH ×3 (08:00→20:00)
[2022-08-30] MEDS ORDERED: amLODIPine BESYLATE 5 MG TABLET (FP) ONE (11:27)
[2022-08-30] MEDS ORDERED: METOPROLOL TARTRATE 25 MG TABLET (FP) ONE (11:27)
[2022-08-30] MEDS ORDERED: QUEtiapine FUMARATE 25 MG TABLET ONE (11:28)
[2022-08-30] MEDS ORDERED: FAMOTIDINE 20 MG TABLET ONE (11:28)
[2022-08-30] MEDS ORDERED: APIXABAN 2.5 MG TABLET ONE (11:28)
[2022-08-30] MEDS: amLODIPine BESYLATE 5 MG TABLET (FP) PO SCH (11:42)
[2022-08-30] MEDS: APIXABAN 2.5 MG TABLET PO SCH (11:42)
[2022-08-30] MEDS: POLYETHYLENE GLYCOL (HEALTHYLAX) 3350 17 GM PACKET PO SCH (11:42)
[2022-08-30] MEDS: QUEtiapine FUMARATE 25 MG TABLET PO SCH (11:42)
[2022-08-30] MEDS: METOPROLOL TARTRATE 25 MG TABLET (FP) PO SCH (11:42)
[2022-08-30] MEDS: FAMOTIDINE 20 MG TABLET PO SCH (11:42)
[2022-08-30] MEDS: VANCOMYCIN 1 GM in D5W (PRE-DOCKED) 1,000 MG/250 ML IVPB SCH (15:34)
[2022-08-30 23:10] LABS: EPI CELLS 9 /uL (0-25.1); HYALINE CASTS 1 /uL (0-3.1); URINE APPEARANCE TURBID; URINE BACTERIA 125 /uL (0-1359); URINE BILIRUBIN NEGATIVE (NEGATIVE); URINE COLOR YELLOW; URINE GLUCOSE (UA) NEGATIVE (NEGATIVE); URINE KETONE NEGATIVE (NEGATIVE); URINE LEUK ESTERASE 3+ (NEGATIVE); URINE NITRITE NEGATIVE (NEGATIVE); URINE PROTEIN 3+ (NEGATIVE); URINE RBC 58 /uL (0-23.9); URINE UROBILINOGEN 0.2 mg/dL (0.2-1.0); URINE WBC 1777 /uL (0-25.8)
[2022-08-30 23:46] LABS: YEAST POSITIVE (NEGATIVE)
[2022-08-31] MEDS: QUEtiapine FUMARATE 25 MG TABLET PO SCH ×3 (03:42→23:11)
[2022-08-31] MEDS: METOPROLOL TARTRATE 25 MG TABLET (FP) PO SCH ×3 (03:42→23:11)
[2022-08-31] MEDS: APIXABAN 2.5 MG TABLET PO SCH ×3 (03:42→23:11)
[2022-08-31] MEDS ORDERED: POLYETHYLENE GLYCOL (HEALTHYLAX) 3350 17 GM PACKET ONE (10:22)
[2022-08-31] MEDS ORDERED: QUEtiapine FUMARATE 25 MG TABLET ONE (10:23)
[2022-08-31] MEDS ORDERED: METOPROLOL TARTRATE 25 MG TABLET (FP) ONE (10:23)
[2022-08-31] MEDS ORDERED: amLODIPine BESYLATE 5 MG TABLET (FP) ONE (10:23)
[2022-08-31] MEDS ORDERED: APIXABAN 2.5 MG TABLET ONE (10:23)
[2022-08-31] MEDS ORDERED: PIPERACILLIN/TAZOB 2.25 GM 2.25 GM/50 ML BAG IVPB ONE ×3 (10:23→19:51)
[2022-08-31] MEDS ORDERED: FAMOTIDINE 20 MG TABLET ONE (10:23)
[2022-08-31] MEDS: amLODIPine BESYLATE 5 MG TABLET (FP) PO SCH (10:26)
[2022-08-31] MEDS: POLYETHYLENE GLYCOL (HEALTHYLAX) 3350 17 GM PACKET PO SCH (10:26)
[2022-08-31] MEDS: PIPERACILLIN/TAZOB 2.25 GM 2.25 GM in DEXTROSE 5%-WATER - 50 ML IVPB SCH ×3 (10:26→20:01)
[2022-08-31] MEDS: FAMOTIDINE 20 MG TABLET PO SCH (10:26)
[2022-08-31] MEDS: ALBUTEROL SO4 2.5/IPRATROPIUM 0.5 INH SOL 3 ML VIAL.NEB. NEB SCH ×3 (12:00→20:00)
[2022-08-31 12:17] LABS: BASO % 0.3 % (0-2.0); EOS % 3.1 % (0-4.5); HEMATOCRIT 22.2 % (35.4-49); HEMOGLOBIN 7.4 GM/dL (11.7-16.9); LYMPH % 14.7 % (8-40); MCHC 33.6 g/dl (32.0-35.9); MEAN CELL VOLUME 89.3 fl (80-96); MEAN PLT VOLUME 6.9 fl (7.5-11.1); MONO % 10.1 % (3.8-10.2); NEUT % 71.8 % (42.8-82.8); PLATELET COUNT 248 10^3/uL (134-434); RBC 2.49 M/mm3 (4.00-5.60); RDW 20.4 % (11.9-15.9); WHITE BLOOD COUNT 8.9 K/mm3 (4.0-10.0)
[2022-08-31 12:37] LABS: CALCIUM 8.3 mg/dL (8.5-10.1)
[2022-08-31 12:38] LABS: ALBUMIN 2.2 g/dl (3.4-5.0)
[2022-08-31 12:39] LABS: BLOOD UREA NITROGEN 46.9 mg/dL (7-18)
[2022-08-31 12:42] LABS: CREATININE 1.6 mg/dL (0.55-1.3)
[2022-08-31 12:44] LABS: BILIRUBIN,TOTAL 0.5 mg/dL (0.2-1); TOT PROT 7.1 g/dl (6.4-8.2)
[2022-09-01] MEDS: PIPERACILLIN/TAZOB 2.25 GM 2.25 GM in DEXTROSE 5%-WATER - 50 ML IVPB SCH ×4 (04:00→23:24)
[2022-09-01] MEDS: ALBUTEROL SO4 2.5/IPRATROPIUM 0.5 INH SOL 3 ML VIAL.NEB. NEB SCH ×5 (07:35→21:00)
[2022-09-01 09:38] LABS: BASO % 0.5 % (0-2.0); EOS % 5.3 % (0-4.5); HEMATOCRIT 29.4 % (35.4-49); LYMPH % 19.2 % (8-40); MCH 29.7 pg (25.7-33.7); MCHC 33.8 g/dl (32.0-35.9); MEAN CELL VOLUME 87.9 fl (80-96); MEAN PLT VOLUME 7.4 fl (7.5-11.1); MONO % 11.2 % (3.8-10.2); NEUT % 63.8 % (42.8-82.8); PLATELET COUNT 289 10^3/uL (134-434); RBC 3.35 M/mm3 (4.00-5.60); RDW 19.8 % (11.9-15.9); WHITE BLOOD COUNT 9.5 K/mm3 (4.0-10.0)
[2022-09-01 09:55] LABS: ALBUMIN 2.2 g/dl (3.4-5.0); BLOOD UREA NITROGEN 41.2 mg/dL (7-18); CALCIUM 8.6 mg/dL (8.5-10.1)
[2022-09-01 09:58] LABS: CREATININE 1.5 mg/dL (0.55-1.3)
[2022-09-01 09:59] LABS: TOT PROT 7.4 g/dl (6.4-8.2)
[2022-09-01 10:00] LABS: BILIRUBIN,TOTAL 0.9 mg/dL (0.2-1)
[2022-09-01] MEDS ORDERED: METOPROLOL TARTRATE 25 MG TABLET (FP) PO SCH (10:00)
[2022-09-01] MEDS ORDERED: APIXABAN 2.5 MG TABLET PO SCH (10:00)
[2022-09-01] MEDS ORDERED: amLODIPine BESYLATE 5 MG TABLET (FP) PO SCH (10:00)
[2022-09-01] MEDS ORDERED: POLYETHYLENE GLYCOL (HEALTHYLAX) 3350 17 GM PACKET PO SCH (10:00)
[2022-09-01] MEDS ORDERED: FAMOTIDINE 20 MG TABLET PO SCH (10:00)
[2022-09-01] MEDS ORDERED: QUEtiapine FUMARATE 25 MG TABLET PO SCH (10:00)
[2022-09-01] MEDS: amLODIPine BESYLATE 5 MG TABLET (FP) GT SCH (10:20)
[2022-09-01] MEDS: APIXABAN 2.5 MG TABLET GT SCH ×2 (10:20→23:24)
[2022-09-01] MEDS: POLYETHYLENE GLYCOL (HEALTHYLAX) 3350 17 GM PACKET PEG SCH (10:20)
[2022-09-01] MEDS: METOPROLOL TARTRATE 25 MG TABLET (FP) GT SCH ×2 (10:20→23:24)
[2022-09-01] MEDS: QUEtiapine FUMARATE 25 MG TABLET GT SCH ×2 (10:20→23:23)
[2022-09-01] MEDS: FAMOTIDINE 40 MG/5 ML ORAL SUSPENSION PEG SCH (10:21)
[2022-09-01 12:12] VITALS: BMI 23.4
[2022-09-02] MEDS: PIPERACILLIN/TAZOB 2.25 GM 2.25 GM in DEXTROSE 5%-WATER - 50 ML IVPB SCH ×4 (02:46→23:04)
[2022-09-02] MEDS: ALBUTEROL SO4 2.5/IPRATROPIUM 0.5 INH SOL 3 ML VIAL.NEB. NEB SCH ×3 (07:53→17:30)
[2022-09-02] MEDS: QUEtiapine FUMARATE 25 MG TABLET GT SCH ×2 (09:27→23:05)
[2022-09-02] MEDS: amLODIPine BESYLATE 5 MG TABLET (FP) GT SCH (09:28)
[2022-09-02] MEDS: APIXABAN 2.5 MG TABLET GT SCH ×2 (09:28→23:05)
[2022-09-02] MEDS: POLYETHYLENE GLYCOL (HEALTHYLAX) 3350 17 GM PACKET PEG SCH (09:29)
[2022-09-02] MEDS: METOPROLOL TARTRATE 25 MG TABLET (FP) GT SCH ×2 (09:29→23:05)
[2022-09-02] MEDS: FAMOTIDINE 40 MG/5 ML ORAL SUSPENSION PEG SCH (09:30)
[2022-09-02] MEDS ORDERED: guaiFENesin/D-METHORPHAN HB 10 ML UNIT-DOSE CUPS PO PRN (17:53)
[2022-09-03] MEDS: methylPREDNISolone NA SUCC 40 MG/1 ML VIAL IVPUSH SCH ×4 (02:24→17:12)
[2022-09-03] MEDS: PIPERACILLIN/TAZOB 2.25 GM 2.25 GM in DEXTROSE 5%-WATER - 50 ML IVPB SCH ×4 (02:24→21:41)
[2022-09-03] MEDS: QUEtiapine FUMARATE 25 MG TABLET GT SCH ×2 (09:02→21:41)
[2022-09-03] MEDS: POLYETHYLENE GLYCOL (HEALTHYLAX) 3350 17 GM PACKET PEG SCH (09:02)
[2022-09-03] MEDS: FAMOTIDINE 40 MG/5 ML ORAL SUSPENSION PEG SCH (09:02)
[2022-09-03] MEDS: APIXABAN 2.5 MG TABLET GT SCH ×2 (09:02→21:41)
[2022-09-03] MEDS: amLODIPine BESYLATE 5 MG TABLET (FP) GT SCH (09:02)
[2022-09-03] MEDS: METOPROLOL TARTRATE 25 MG TABLET (FP) GT SCH ×2 (09:02→21:41)
[2022-09-03] MEDS ORDERED: PIPERACILLIN/TAZOBACTAM 2.25 GM VIAL IVPB ONE (21:25)
[2022-09-04] MEDS: PIPERACILLIN/TAZOB 2.25 GM 2.25 GM in DEXTROSE 5%-WATER - 50 ML IVPB SCH ×3 (02:28→16:50)
[2022-09-04] MEDS: methylPREDNISolone NA SUCC 40 MG/1 ML VIAL IVPUSH SCH ×3 (02:31→17:53)
[2022-09-04] MEDS: FAMOTIDINE 40 MG/5 ML ORAL SUSPENSION PEG SCH (11:25)
[2022-09-04] MEDS: amLODIPine BESYLATE 5 MG TABLET (FP) GT SCH (11:26)
[2022-09-04] MEDS: QUEtiapine FUMARATE 25 MG TABLET GT SCH (11:26)
[2022-09-04] MEDS: METOPROLOL TARTRATE 25 MG TABLET (FP) GT SCH (11:26)
[2022-09-04] MEDS: POLYETHYLENE GLYCOL (HEALTHYLAX) 3350 17 GM PACKET PEG SCH (11:26)
[2022-09-04] MEDS: APIXABAN 2.5 MG TABLET GT SCH (11:27)
[2022-09-04 14:32] VITALS: BP 155/72; RESP 18; TEMP 98.1
[2022-09-04 15:23] VITALS: PULSE 65
== END 2022-09-04 20:35 | DRG 690 ==
LOC: JER 06:55 → JERBED 16:42 → OBSVTOIN 08-31 14:17 → J8W 08-31 23:42 → J6S 09-01 14:26 → J7W 09-01 22:19
PROVIDERS: ADMIT Family Medicine; ATTEND Family Medicine
PROC: 30233N1 Transfusion of Nonautologous Red Blood Cells into Peripheral Vein, Percutaneous Approach (ICD-10-PCS; principal; 2022-09-01)
DX: N39.0 Urinary tract infection, site not specified (principal); J95.03 Malfunction of tracheostomy stoma; J96.11 Chronic respiratory failure with hypoxia; E78.5 Hyperlipidemia, unspecified; R29.6 Repeated falls; I12.9 Hypertensive chronic kidney disease with stage 1 through stage 4 chronic kidney disease, or unspecified chronic kidney disease; N18.9 Chronic kidney disease, unspecified; R50.9 Fever, unspecified; D64.9 Anemia, unspecified; M12.812 Other specific arthropathies, not elsewhere classified, left shoulder; M12.811 Other specific arthropathies, not elsewhere classified, right shoulder; R80.9 Proteinuria, unspecified; R00.0 Tachycardia, unspecified; W18.39XA Other fall on same level, initial encounter; D72.829 Elevated white blood cell count, unspecified; I25.10 Atherosclerotic heart disease of native coronary artery without angina pectoris; B96.5 Pseudomonas (aeruginosa) (mallei) (pseudomallei) as the cause of diseases classified elsewhere; F03.90 Unspecified dementia, unspecified severity, without behavioral disturbance, psychotic disturbance, mood disturbance, and anxiety; K21.9 Gastro-esophageal reflux disease without esophagitis; Z85.038 Personal history of other malignant neoplasm of large intestine; Z85.51 Personal history of malignant neoplasm of bladder; Z98.890 Other specified postprocedural states; Y92.098 Other place in other non-institutional residence as the place of occurrence of the external cause
CPT/HCPCS: 0241U-QW; 36415; 36430; 70450-TC; 71045-TC-FY; 72125-TC; 72170-TC-FY; 74230-TC-FY; 80053; 81003; 82550; 82728; 83540; 83550; 84484; 85025; 85610; 85730; 86850; 86900; 86901; 86922; 87040; 87086; 87186; 87324; 87449; 92611-GN; 93005; 93010; 94640; 99285-25; C9803-CS; G0378; P9058; U0003; U0005

== ENCOUNTER 2022-09-29 15:07 | Emergency (ER) | payer OTHER ==
[2022-09-29 15:38] VITALS: BMI 18.1
[2022-09-29 21:04] VITALS: RESP 18
[2022-09-29 22:41] LABS: HEMATOCRIT 28.1 % (35.4-49); HEMOGLOBIN 9.7 GM/dL (11.7-16.9); MCHC 34.6 g/dl (32.0-35.9); MEAN CELL VOLUME 92.3 fl (80-96); MEAN PLT VOLUME 7.5 fl (7.5-11.1); PLATELET COUNT 318 10^3/uL (134-434); RBC 3.04 M/mm3 (4.00-5.60); RDW 20.3 % (11.9-15.9); WHITE BLOOD COUNT 9.4 K/mm3 (4.0-10.0)
[2022-09-29 23:07] LABS: CALCIUM 8.9 mg/dL (8.5-10.1)
[2022-09-29 23:08] LABS: ALBUMIN 2.5 g/dl (3.4-5.0); BLOOD UREA NITROGEN 58.2 mg/dL (7-18)
[2022-09-29 23:11] LABS: CREATININE 1.4 mg/dL (0.55-1.3)
[2022-09-29 23:12] LABS: BILIRUBIN,TOTAL 0.5 mg/dL (0.2-1)
[2022-09-29 23:13] LABS: TOT PROT 7.6 g/dl (6.4-8.2)
[2022-09-30] MEDS ORDERED: ACETAMINOPHEN 1000 MG/100 ML BAG IVPB ONE (01:26)
[2022-09-30] MEDS ORDERED: ACETAMINOPHEN INJECTION 100 ML IVPB ONE (02:39)
[2022-09-30 03:45] VITALS: BP 122/74; PULSE 84; TEMP 98.9
== END 2022-09-30 06:25 | disposition short-term general hospital (02) ==
LOC: JER 15:07
PROC: 3E033GC Introduction of Other Therapeutic Substance into Peripheral Vein, Percutaneous Approach (ICD-10-PCS; principal; 2022-09-29)
DX: J95.09 Other tracheostomy complication (principal)
CPT/HCPCS: 0241U-QW; 36415; 70491-TC; 71045-TC-FY; 80053; 85027; 99285-25

== ENCOUNTER 2023-01-19 20:38 | Inpatient (IN) | payer OTHER ==
[2023-01-19] MEDS ORDERED: ACETAMINOPHEN 1000 MG/100 ML BAG IVPB ONE (21:36)
[2023-01-19] MEDS ORDERED: SODIUM CHLORIDE 0.9% 500 ML INFUS.BAG IV ONE (21:44)
[2023-01-19] MEDS ORDERED: CEFTRIAXONE 1 GM in DEXTROSE 5%-WATER - 100 ML IVPB ONE (22:31)
[2023-01-19] MEDS ORDERED: AZITHROMYCIN IVPB 500 MG in DEXTROSE 5%-WATER - 250 ML IVPB ONE (22:31)
[2023-01-19 22:47] LABS: BASO % 0.1 % (0-2.0); HEMATOCRIT 18.3 % (35.4-49); MCH 31.6 pg (25.7-33.7); MCHC 31.3 g/dl (32.0-35.9); MEAN PLT VOLUME 6.8 fl (7.5-11.1); MONO % 7.3 % (3.8-10.2); NEUT % 86.6 % (42.8-82.8); PLATELET COUNT 549 10^3/uL (134-434); RBC 1.81 M/mm3 (4.00-5.60); RDW 15.4 % (11.9-15.9); WHITE BLOOD COUNT 23.1 K/mm3 (4.0-10.0)
[2023-01-19] MEDS ORDERED: CEFTRIAXONE 1 GM/50 ML BAG ONE (22:52)
[2023-01-19] MEDS ORDERED: ACETAMINOPHEN INJECTION 100 ML IVPB ONE (22:52)
[2023-01-19] MEDS ORDERED: AZITHROMYCIN IVPB 500 MG/250 ML BAG IVPB ONE (22:53)
[2023-01-19 22:55] LABS: INR 1.41 (0.83-1.09); PROTHROMBIN TIME (PATIENT) 16.3 SEC (9.7-13.0)
[2023-01-19 22:57] LABS: ACTIVATED PTT 27.6 SECONDS (25.2-36.5)
[2023-01-19 23:08] LABS: HEMOGLOBIN 5.7 GM/dL (11.7-16.9)
[2023-01-19 23:10] LABS: POTASSIUM 5.7 mmol/L (3.5-5.1)
[2023-01-19 23:12] LABS: ALBUMIN 2.1 g/dl (3.4-5.0); BLOOD UREA NITROGEN 101.9 mg/dL (7-18); CALCIUM 8.6 mg/dL (8.5-10.1)
[2023-01-19 23:16] LABS: CREATININE 4.3 mg/dL (0.55-1.3)
[2023-01-19 23:17] LABS: BILIRUBIN,TOTAL 0.3 mg/dL (0.2-1); TOT PROT 7.4 g/dl (6.4-8.2)
[2023-01-19 23:20] LABS: N-TERMINAL BNP 5493.3 pg/ml (5-450)
[2023-01-19 23:42] LABS: ANISOCYTOSIS 2+; MACROCYTOSIS 1+; TARGET CELLS 1+
[2023-01-19 23:49] LABS: LACTIC ACID 6.5 mmol/L (0.4-2.0)
[2023-01-20 02:34] LABS: EPI CELLS 6 /uL (0-25.1); HYALINE CASTS 2 /uL (0-3.1); PH,URINE 5.5 (5.0-8.0); URINE APPEARANCE CLOUDY; URINE BACTERIA 712 /uL (0-1359); URINE BILIRUBIN NEGATIVE (NEGATIVE); URINE COLOR YELLOW; URINE GLUCOSE (UA) NEGATIVE (NEGATIVE); URINE KETONE NEGATIVE (NEGATIVE); URINE LEUK ESTERASE 3+ (NEGATIVE); URINE NITRITE NEGATIVE (NEGATIVE); URINE PROTEIN 1+ (NEGATIVE); URINE RBC 448 /uL (0-23.9); URINE UROBILINOGEN 0.2 mg/dL (0.2-1.0); URINE WBC 1324 /uL (0-25.8)
[2023-01-20 03:04] LABS: POTASSIUM 5.6 mmol/L (3.5-5.1)
[2023-01-20 03:05] LABS: CALCIUM 8.4 mg/dL (8.5-10.1)
[2023-01-20] MEDS ORDERED: VANCOMYCIN 1 GM in D5W (PRE-DOCKED) 1,000 MG/250 ML (RESTRICTED TO ID ONLY IVPB ONE (04:03)
[2023-01-20] MEDS ORDERED: SODIUM ZIRCONIUM CYCLOSILICATE (LOKELMA) 5 GM PACKET GT ONE (04:28)
[2023-01-20] MEDS ORDERED: PIPERACILLIN/TAZOB 2.25 GM 2.25 GM in DEXTROSE 5%-WATER - 50 ML IVPB SCH (04:30)
[2023-01-20] MEDS ORDERED: oxyCODONE HCL 5 MG TABLET GT PRN (04:39)
[2023-01-20] MEDS ORDERED: ALBUTEROL SO4 0.083% IH SOL 2.5 MG/3 ML VIAL.NEB. NEB PRN (04:39)
[2023-01-20] MEDS: SODIUM CHLORIDE 1,000 ML IV SCH ×3 (07:47→21:52)
[2023-01-20] MEDS ORDERED: METOPROLOL TARTRATE 25 MG TABLET (FP) ONE (08:48)
[2023-01-20] MEDS ORDERED: PIPERACILLIN/TAZOB 2.25 GM 2.25 GM/50 ML BAG IVPB ONE ×2 (08:48→15:58)
[2023-01-20] MEDS ORDERED: VANCOMYCIN/WATER FOR INJ (PEG) 1,000 MG/200 ML BAG IVPB ONE (08:48)
[2023-01-20] MEDS ORDERED: FAMOTIDINE 20 MG TABLET ONE ×2 (08:48→09:11)
[2023-01-20] MEDS: PIPERACILLIN/TAZOB 2.25 GM 2.25 GM in DEXTROSE 5%-WATER - 50 ML IVPB SCH ×3 (09:01→21:45)
[2023-01-20] MEDS ORDERED: SODIUM ZIRCONIUM CYCLOSILICATE (LOKELMA) 5 GM PACKET ONE (09:05)
[2023-01-20] MEDS: METOPROLOL TARTRATE 25 MG TABLET (FP) PO SCH ×2 (09:17→22:16)
[2023-01-20] MEDS ORDERED: FAMOTIDINE 20 MG TABLET PO SCH (10:00)
[2023-01-20 13:11] LABS: BASO % 0.1 % (0-2.0); HEMATOCRIT 28.2 % (35.4-49); HEMOGLOBIN 9.4 GM/dL (11.7-16.9); LYMPH % 7.3 % (8-40); MCH 31.6 pg (25.7-33.7); MCHC 33.2 g/dl (32.0-35.9); MEAN CELL VOLUME 95.2 fl (80-96); MEAN PLT VOLUME 6.7 fl (7.5-11.1); MONO % 5.3 % (3.8-10.2); NEUT % 87.3 % (42.8-82.8); PLATELET COUNT 387 10^3/uL (134-434); RBC 2.97 M/mm3 (4.00-5.60); RDW 16.9 % (11.9-15.9); WHITE BLOOD COUNT 16.6 K/mm3 (4.0-10.0)
[2023-01-20 13:13] LABS: POTASSIUM 4.8 mmol/L (3.5-5.1)
[2023-01-20 13:17] LABS: CALCIUM 7.9 mg/dL (8.5-10.1)
[2023-01-20 13:18] LABS: BLOOD UREA NITROGEN 97.7 mg/dL (7-18); MAGNESIUM 1.8 mg/dL (1.8-2.4)
[2023-01-20 13:20] LABS: PHOSPHOROUS 3.9 mg/dL (2.5-4.9)
[2023-01-20 13:21] LABS: CREATININE 3.5 mg/dL (0.55-1.3)
[2023-01-20 13:23] LABS: LACTIC ACID 2.5 mmol/L (0.4-2.0)
[2023-01-20] MEDS: PANTOPRAZOLE SODIUM 40 MG VIAL IVPUSH SCH (22:16)
[2023-01-21] MEDS: PIPERACILLIN/TAZOB 2.25 GM 2.25 GM in DEXTROSE 5%-WATER - 50 ML IVPB SCH ×3 (02:39→17:31)
[2023-01-21 07:37] LABS: HEMATOCRIT 26.7 % (35.4-49); HEMOGLOBIN 9.2 GM/dL (11.7-16.9); MCH 32.8 pg (25.7-33.7); MCHC 34.5 g/dl (32.0-35.9); MEAN CELL VOLUME 94.9 fl (80-96); MEAN PLT VOLUME 7.1 fl (7.5-11.1); PLATELET COUNT 296 10^3/uL (134-434); RBC 2.82 M/mm3 (4.00-5.60); RDW 16.9 % (11.9-15.9); WHITE BLOOD COUNT 12.6 K/mm3 (4.0-10.0)
[2023-01-21 07:57] LABS: POTASSIUM 4.7 mmol/L (3.5-5.1)
[2023-01-21 08:04] LABS: BLOOD UREA NITROGEN 92.8 mg/dL (7-18)
[2023-01-21 08:07] LABS: ALBUMIN 1.7 g/dl (3.4-5.0); CREATININE 3.3 mg/dL (0.55-1.3)
[2023-01-21 08:08] LABS: BILIRUBIN,TOTAL 0.4 mg/dL (0.2-1)
[2023-01-21 08:09] LABS: TOT PROT 6.1 g/dl (6.4-8.2)
[2023-01-21] MEDS ORDERED: PIPERACILLIN/TAZOB 3.375 GM 3.375 GM in DEXTROSE 5%-WATER - 50 ML IVPB SCH (10:00)
[2023-01-21] MEDS ORDERED: VANCOMYCIN 1 GM in D5W (PRE-DOCKED) 1,000 MG/250 ML (RESTRICTED TO ID ONLY IVPB SCH (10:00)
[2023-01-21] MEDS: SODIUM CHLORIDE 1,000 ML IV SCH (10:43)
[2023-01-21] MEDS: PANTOPRAZOLE SODIUM 40 MG VIAL IVPUSH SCH ×2 (10:43→23:54)
[2023-01-21] MEDS: METOPROLOL TARTRATE 25 MG TABLET (FP) PO SCH ×2 (10:44→23:49)
[2023-01-21] MEDS ORDERED: VANCOMYCIN/WATER FOR INJ (PEG) 1,000 MG/200 ML BAG IVPB ONE (11:00)
[2023-01-21] MEDS ORDERED: DEXTROSE 5%-0.45% SALINE 1,000 ML IV SCH (15:15)
[2023-01-21] MEDS: SODIUM BICARBONATE 8.4% 50 MEQ/50 ML DISP.SYRIN IVPUSH SCH ×3 (16:22→23:54)
[2023-01-21] MEDS: COLLAGENASE CLOSTRIDIUM HIST. 30 GRAMS TUBE TP SCH (17:13)
[2023-01-22] MEDS: PIPERACILLIN/TAZOB 2.25 GM 2.25 GM in DEXTROSE 5%-WATER - 50 ML IVPB SCH ×4 (02:51→17:03)
[2023-01-22 08:19] LABS: CHLORIDE 129 mmol/L (98-107); SODIUM 153 mmol/L (136-145)
[2023-01-22 08:23] LABS: CALCIUM 7.5 mg/dL (8.5-10.1)
[2023-01-22 08:24] LABS: ALBUMIN 1.4 g/dl (3.4-5.0); BLOOD UREA NITROGEN 84.2 mg/dL (7-18); CO2 14 mmol/L (21-32); GLUCOSE,RANDOM 141 mg/dL (74-106)
[2023-01-22 08:26] LABS: SGPT/ALT 13 U/L (13-61)
[2023-01-22 08:27] LABS: CREATININE 3.3 mg/dL (0.55-1.3); SGOT/AST 23 U/L (15-37)
[2023-01-22 08:28] LABS: BILIRUBIN,TOTAL 0.4 mg/dL (0.2-1); TOT PROT 5.2 g/dl (6.4-8.2)
[2023-01-22 08:30] LABS: ALK PHOS 81 U/L (45-117); ANION GAP 11 MMOL/L (8-16); POTASSIUM 2.9 mmol/L (3.5-5.1)
[2023-01-22] MEDS ORDERED: D5-1/3NS+20 MEQ KCL - 20 MEQ/1,000 ML INFUS.BAG IV SCH (08:45)
[2023-01-22] MEDS ORDERED: POTASSIUM CHLORIDE ORAL LIQUID 20 MEQ/15 ML PO ONE (09:00)
[2023-01-22] MEDS: KCL 10 MEQ IVPB 10 MEQ/100 ML INFUS.BAG IVPB SCH ×3 (10:15→12:57)
[2023-01-22] MEDS: PANTOPRAZOLE SODIUM 40 MG VIAL IVPUSH SCH ×2 (10:18→21:58)
[2023-01-22] MEDS: METOPROLOL TARTRATE 25 MG TABLET (FP) PO SCH (10:19)
[2023-01-22] MEDS: SODIUM CHLORIDE 1,000 ML IV SCH (11:13)
[2023-01-22] MEDS: COLLAGENASE CLOSTRIDIUM HIST. 30 GRAMS TUBE TP SCH (11:37)
[2023-01-22] MEDS ORDERED: POTASSIUM CHLORIDE IV SCH ×2 (12:30)
[2023-01-22] MEDS ORDERED: 1/3 NORMAL SALINE IV SCH ×2 (12:30)
[2023-01-22] MEDS ORDERED: DEXTROSE 5% IV SCH ×2 (12:30)
[2023-01-22] MEDS: POTASSIUM CHLORIDE 20 MEQ in DEXTROSE 5%-WATER - 1,000 ML IV SCH (14:49)
[2023-01-22] MEDS ORDERED: DAPTOMYCIN 400 MG in SODIUM CHLORIDE 50 ML IVPB ONE (15:39)
[2023-01-22 15:42] VITALS: BMI 17.3
[2023-01-22] MEDS: METOPROLOL TARTRATE 25 MG TABLET (FP) PEG SCH (21:59)
[2023-01-23] MEDS: PIPERACILLIN/TAZOB 2.25 GM 2.25 GM in DEXTROSE 5%-WATER - 50 ML IVPB SCH ×3 (02:26→17:46)
[2023-01-23] MEDS: POTASSIUM CHLORIDE 20 MEQ in DEXTROSE 5%-WATER - 1,000 ML IV SCH (04:35)
[2023-01-23 07:26] LABS: HEMATOCRIT 24.6 % (35.4-49); HEMOGLOBIN 8.1 GM/dL (11.7-16.9); MCH 31.5 pg (25.7-33.7); MCHC 32.9 g/dl (32.0-35.9); MEAN CELL VOLUME 95.5 fl (80-96); PLATELET COUNT 211 10^3/uL (134-434); RBC 2.57 M/mm3 (4.00-5.60); RDW 17.3 % (11.9-15.9); WHITE BLOOD COUNT 12.2 K/mm3 (4.0-10.0)
[2023-01-23 07:43] LABS: POTASSIUM 3.8 mmol/L (3.5-5.1)
[2023-01-23 07:48] LABS: ALBUMIN 1.5 g/dl (3.4-5.0); CALCIUM 7.7 mg/dL (8.5-10.1)
[2023-01-23 07:53] LABS: BILIRUBIN,TOTAL 0.3 mg/dL (0.2-1); TOT PROT 5.3 g/dl (6.4-8.2)
[2023-01-23] MEDS: AMINO ACIDS/PROTEIN HYDROLYS 30 ML LIQUID.PKT PO SCH (08:09)
[2023-01-23] MEDS: PANTOPRAZOLE SODIUM 40 MG VIAL IVPUSH SCH ×2 (09:48→21:31)
[2023-01-23] MEDS: METOPROLOL TARTRATE 25 MG TABLET (FP) PEG SCH ×2 (09:49→21:31)
[2023-01-23] MEDS: COLLAGENASE CLOSTRIDIUM HIST. 30 GRAMS TUBE TP SCH (09:49)
[2023-01-23 10:05] LABS: ANISOCYTOSIS 1+; MACROCYTOSIS 1+
[2023-01-24] MEDS: PIPERACILLIN/TAZOB 2.25 GM 2.25 GM in DEXTROSE 5%-WATER - 50 ML IVPB SCH ×3 (01:40→17:51)
[2023-01-24 08:30] LABS: BASO % 0.1 % (0-2.0); HEMATOCRIT 27.1 % (35.4-49); HEMOGLOBIN 9.1 GM/dL (11.7-16.9); LYMPH % 11.7 % (8-40); MCH 31.9 pg (25.7-33.7); MCHC 33.6 g/dl (32.0-35.9); MEAN CELL VOLUME 95.1 fl (80-96); MEAN PLT VOLUME 6.7 fl (7.5-11.1); MONO % 3.6 % (3.8-10.2); NEUT % 83.6 % (42.8-82.8); PLATELET COUNT 200 10^3/uL (134-434); RBC 2.85 M/mm3 (4.00-5.60); RDW 17.6 % (11.9-15.9); WHITE BLOOD COUNT 14.5 K/mm3 (4.0-10.0)
[2023-01-24 08:59] LABS: POTASSIUM 3.6 mmol/L (3.5-5.1)
[2023-01-24 09:01] LABS: CALCIUM 7.4 mg/dL (8.5-10.1)
[2023-01-24 09:02] LABS: ALBUMIN 1.6 g/dl (3.4-5.0); BLOOD UREA NITROGEN 65.3 mg/dL (7-18)
[2023-01-24 09:05] LABS: CREATININE 2.7 mg/dL (0.55-1.3)
[2023-01-24 09:06] LABS: BILIRUBIN,TOTAL 0.5 mg/dL (0.2-1); TOT PROT 5.7 g/dl (6.4-8.2)
[2023-01-24] MEDS: PANTOPRAZOLE SODIUM 40 MG VIAL IVPUSH SCH ×2 (09:56→21:00)
[2023-01-24] MEDS: METOPROLOL TARTRATE 25 MG TABLET (FP) PEG SCH ×2 (09:56→21:00)
[2023-01-24] MEDS: COLLAGENASE CLOSTRIDIUM HIST. 30 GRAMS TUBE TP SCH (09:56)
[2023-01-24] MEDS: AMINO ACIDS/PROTEIN HYDROLYS 30 ML LIQUID.PKT PO SCH (09:56)
[2023-01-24] MEDS ORDERED: ACETAMINOPHEN 1000 MG/100 ML BAG IVPB PRN (15:29)
[2023-01-24] MEDS: DAPTOMYCIN 400 MG in SODIUM CHLORIDE 50 ML IVPB SCH (16:37)
[2023-01-24] MEDS: LACTATED RINGERS SOLUTION 1,000 ML/1,000 ML INFUS.BAG IV SCH (20:59)
[2023-01-25] MEDS: PIPERACILLIN/TAZOB 2.25 GM 2.25 GM in DEXTROSE 5%-WATER - 50 ML IVPB SCH ×3 (02:13→17:18)
[2023-01-25] MEDS: LACTATED RINGERS SOLUTION 1,000 ML/1,000 ML INFUS.BAG IV SCH (07:57)
[2023-01-25 08:00] LABS: BASO % 0.1 % (0-2.0); EOS % 0.1 % (0-4.5); HEMATOCRIT 22.8 % (35.4-49); HEMOGLOBIN 7.7 GM/dL (11.7-16.9); LYMPH % 9.5 % (8-40); MCH 32.2 pg (25.7-33.7); MCHC 33.8 g/dl (32.0-35.9); MEAN CELL VOLUME 95.1 fl (80-96); NEUT % 87.3 % (42.8-82.8); RBC 2.39 M/mm3 (4.00-5.60); RDW 17.4 % (11.9-15.9); WHITE BLOOD COUNT 18.7 K/mm3 (4.0-10.0)
[2023-01-25 08:02] LABS: MEAN PLT VOLUME 7.2 fl (7.5-11.1); PLATELET COUNT 168 10^3/uL (134-434)
[2023-01-25 08:15] LABS: POTASSIUM 3.2 mmol/L (3.5-5.1)
[2023-01-25 08:18] LABS: CALCIUM 7.7 mg/dL (8.5-10.1)
[2023-01-25 08:19] LABS: ALBUMIN 1.4 g/dl (3.4-5.0); BLOOD UREA NITROGEN 67.6 mg/dL (7-18)
[2023-01-25 08:22] LABS: CREATININE 2.8 mg/dL (0.55-1.3)
[2023-01-25 08:23] LABS: BILIRUBIN,TOTAL 0.5 mg/dL (0.2-1); TOT PROT 5.4 g/dl (6.4-8.2)
[2023-01-25] MEDS: METOPROLOL TARTRATE 25 MG TABLET (FP) PEG SCH ×2 (10:08→23:24)
[2023-01-25] MEDS: AMINO ACIDS/PROTEIN HYDROLYS 30 ML LIQUID.PKT PO SCH (10:08)
[2023-01-25] MEDS: PANTOPRAZOLE SODIUM 40 MG VIAL IVPUSH SCH ×2 (10:08→23:24)
[2023-01-25] MEDS: COLLAGENASE CLOSTRIDIUM HIST. 30 GRAMS TUBE TP SCH (10:12)
[2023-01-25] MEDS: KCL 10 MEQ IVPB 10 MEQ/100 ML INFUS.BAG IVPB SCH ×2 (11:09→11:57)
[2023-01-25 11:23] LABS: PLATELET ESTIMATE ADEQUATE
[2023-01-25] MEDS: SODIUM CHLORIDE 0.45%/POT 20 MEQ/1,000 ML INFUS.BAG IV SCH (11:56)
[2023-01-26] MEDS: PIPERACILLIN/TAZOB 2.25 GM 2.25 GM in DEXTROSE 5%-WATER - 50 ML IVPB SCH ×2 (01:19→10:19)
[2023-01-26 06:08] LABS: ARTERIAL BLD GAS O2 SATURATION 97.7 % (95-98); ARTERIAL BLOOD GAS BASE EXCESS -11.2 mmol/L (-2-2); ARTERIAL BLOOD GAS PO2 102.2 mmHg (80-100); ARTERIAL BLOOD GAS pH 7.375 (7.350-7.450)
[2023-01-26 06:12] LABS: ALLENS TEST POSITIVE
[2023-01-26] MEDS: SODIUM CHLORIDE 0.45%/POT 20 MEQ/1,000 ML INFUS.BAG IV SCH ×2 (06:41→12:04)
[2023-01-26 08:54] LABS: BASO % 0.1 % (0-2.0); EOS % 0.6 % (0-4.5); HEMATOCRIT 27.8 % (35.4-49); HEMOGLOBIN 9.6 GM/dL (11.7-16.9); LYMPH % 8.8 % (8-40); MCH 31.6 pg (25.7-33.7); MCHC 34.5 g/dl (32.0-35.9); MEAN CELL VOLUME 91.6 fl (80-96); MEAN PLT VOLUME 7.6 fl (7.5-11.1); MONO % 3.1 % (3.8-10.2); NEUT % 87.4 % (42.8-82.8); PLATELET COUNT 167 10^3/uL (134-434); RBC 3.03 M/mm3 (4.00-5.60); RDW 17.4 % (11.9-15.9); WHITE BLOOD COUNT 15.5 K/mm3 (4.0-10.0)
[2023-01-26] MEDS: METOPROLOL TARTRATE 25 MG TABLET (FP) PEG SCH ×2 (10:18→21:41)
[2023-01-26] MEDS: PANTOPRAZOLE SODIUM 40 MG VIAL IVPUSH SCH ×2 (10:18→21:41)
[2023-01-26] MEDS: AMINO ACIDS/PROTEIN HYDROLYS 30 ML LIQUID.PKT PO SCH (10:18)
[2023-01-26 10:32] LABS: POTASSIUM 3.4 mmol/L (3.5-5.1)
[2023-01-26 10:37] LABS: ALBUMIN 1.4 g/dl (3.4-5.0); BLOOD UREA NITROGEN 53.4 mg/dL (7-18); CALCIUM 7.2 mg/dL (8.5-10.1)
[2023-01-26 10:40] LABS: CREATININE 2.4 mg/dL (0.55-1.3)
[2023-01-26 10:42] LABS: BILIRUBIN,TOTAL 0.5 mg/dL (0.2-1); TOT PROT 5.4 g/dl (6.4-8.2)
[2023-01-26] MEDS ORDERED: POTASSIUM CHLORIDE ORAL LIQUID 20 MEQ/15 ML PO ONE (10:46)
[2023-01-26] MEDS ORDERED: SODIUM BICARBONATE 8.4% 50 MEQ/50 ML DISP.SYRIN IVPUSH ONE (10:47)
[2023-01-26] MEDS: COLLAGENASE CLOSTRIDIUM HIST. 30 GRAMS TUBE TP SCH (10:56)
[2023-01-26] MEDS ORDERED: SODIUM BICARBONATE 8.4% 50 MEQ/50 ML VIAL IVPUSH ONE (11:30)
[2023-01-26] MEDS: SODIUM BICARBONATE 650 MG TABLET PO SCH ×2 (11:36→21:41)
[2023-01-26] MEDS: POTASSIUM CHLORIDE 20 MEQ in DEXTROSE 5%-WATER - 1,000 ML IV SCH (12:32)
[2023-01-26] MEDS: DAPTOMYCIN 400 MG in SODIUM CHLORIDE 50 ML IVPB SCH (16:28)
[2023-01-26] MEDS: CEFTAROLINE FOSAMIL ACETATE 200 MG in DEXTROSE 5%-WATER - 100 ML IVPB SCH (19:00)
[2023-01-27] MEDS: CEFTAROLINE FOSAMIL ACETATE 200 MG in DEXTROSE 5%-WATER - 100 ML IVPB SCH ×3 (00:42→17:09)
[2023-01-27] MEDS: POTASSIUM CHLORIDE 20 MEQ in DEXTROSE 5%-WATER - 1,000 ML IV SCH ×2 (03:59→11:16)
[2023-01-27 07:38] LABS: BASO % 0.1 % (0-2.0); EOS % 1.5 % (0-4.5); HEMATOCRIT 23.4 % (35.4-49); HEMOGLOBIN 8.3 GM/dL (11.7-16.9); LYMPH % 9.9 % (8-40); MCH 31.8 pg (25.7-33.7); MCHC 35.4 g/dl (32.0-35.9); MEAN CELL VOLUME 90.1 fl (80-96); MEAN PLT VOLUME 7.8 fl (7.5-11.1); MONO % 2.9 % (3.8-10.2); NEUT % 85.6 % (42.8-82.8); PLATELET COUNT 179 10^3/uL (134-434); RDW 17.7 % (11.9-15.9); WHITE BLOOD COUNT 15.5 K/mm3 (4.0-10.0)
[2023-01-27 08:02] LABS: POTASSIUM 3.5 mmol/L (3.5-5.1)
[2023-01-27 08:04] LABS: ALBUMIN 1.4 g/dl (3.4-5.0); BLOOD UREA NITROGEN 44.6 mg/dL (7-18); CALCIUM 7.3 mg/dL (8.5-10.1)
[2023-01-27 08:07] LABS: CREATININE 1.9 mg/dL (0.55-1.3)
[2023-01-27 08:08] LABS: TOT PROT 5.2 g/dl (6.4-8.2)
[2023-01-27 08:09] LABS: BILIRUBIN,TOTAL 0.4 mg/dL (0.2-1)
[2023-01-27] MEDS: AMINO ACIDS/PROTEIN HYDROLYS 30 ML LIQUID.PKT PO SCH (08:52)
[2023-01-27] MEDS: COLLAGENASE CLOSTRIDIUM HIST. 30 GRAMS TUBE TP SCH (10:19)
[2023-01-27] MEDS: SODIUM BICARBONATE 650 MG TABLET PO SCH ×2 (10:20→22:29)
[2023-01-27] MEDS: PANTOPRAZOLE SODIUM 40 MG VIAL IVPUSH SCH ×2 (10:20→22:29)
[2023-01-27] MEDS: METOPROLOL TARTRATE 25 MG TABLET (FP) PEG SCH ×2 (10:20→22:29)
[2023-01-27] MEDS ORDERED: SODIUM BICARBONATE 8.4% 50 MEQ/50 ML VIAL IVPUSH ONE (11:17)
[2023-01-27] MEDS ORDERED: POTASSIUM CHLORIDE ORAL LIQUID 20 MEQ/15 ML PO ONE (11:17)
[2023-01-28] MEDS: CEFTAROLINE FOSAMIL ACETATE 200 MG in DEXTROSE 5%-WATER - 100 ML IVPB SCH ×3 (02:10→17:20)
[2023-01-28 08:23] LABS: EOS % 0.8 % (0-4.5); HEMATOCRIT 26.7 % (35.4-49); HEMOGLOBIN 9.3 GM/dL (11.7-16.9); LYMPH % 12.7 % (8-40); MCH 31.3 pg (25.7-33.7); MCHC 34.6 g/dl (32.0-35.9); MEAN CELL VOLUME 90.4 fl (80-96); MEAN PLT VOLUME 7.6 fl (7.5-11.1); MONO % 4.5 % (3.8-10.2); PLATELET COUNT 192 10^3/uL (134-434); RBC 2.96 M/mm3 (4.00-5.60); RDW 17.9 % (11.9-15.9); WHITE BLOOD COUNT 13.2 K/mm3 (4.0-10.0)
[2023-01-28] MEDS: AMINO ACIDS/PROTEIN HYDROLYS 30 ML LIQUID.PKT PO SCH (08:38)
[2023-01-28 08:43] LABS: POTASSIUM 3.8 mmol/L (3.5-5.1)
[2023-01-28 08:48] LABS: CALCIUM 7.1 mg/dL (8.5-10.1)
[2023-01-28 08:49] LABS: ALBUMIN 1.4 g/dl (3.4-5.0); BLOOD UREA NITROGEN 38.7 mg/dL (7-18)
[2023-01-28 08:52] LABS: CREATININE 1.6 mg/dL (0.55-1.3)
[2023-01-28 08:53] LABS: BILIRUBIN,TOTAL 0.7 mg/dL (0.2-1)
[2023-01-28 08:54] LABS: TOT PROT 5.5 g/dl (6.4-8.2)
[2023-01-28] MEDS: COLLAGENASE CLOSTRIDIUM HIST. 30 GRAMS TUBE TP SCH (09:19)
[2023-01-28] MEDS: PANTOPRAZOLE SODIUM 40 MG VIAL IVPUSH SCH ×2 (09:19→21:09)
[2023-01-28] MEDS: SODIUM BICARBONATE 650 MG TABLET PO SCH ×2 (09:20→21:10)
[2023-01-28] MEDS: METOPROLOL TARTRATE 25 MG TABLET (FP) PEG SCH ×2 (09:20→21:09)
[2023-01-28] MEDS: DAPTOMYCIN 400 MG in SODIUM CHLORIDE 50 ML IVPB SCH (16:05)
[2023-01-29] MEDS: CEFTAROLINE FOSAMIL ACETATE 200 MG in DEXTROSE 5%-WATER - 100 ML IVPB SCH ×2 (01:50→10:18)
[2023-01-29 08:13] LABS: BASO % 0.1 % (0-2.0); EOS % 0.8 % (0-4.5); HEMATOCRIT 25.1 % (35.4-49); HEMOGLOBIN 8.6 GM/dL (11.7-16.9); LYMPH % 11.4 % (8-40); MCHC 34.2 g/dl (32.0-35.9); MEAN CELL VOLUME 90.7 fl (80-96); MEAN PLT VOLUME 7.1 fl (7.5-11.1); NEUT % 83.7 % (42.8-82.8); PLATELET COUNT 189 10^3/uL (134-434); RBC 2.77 M/mm3 (4.00-5.60); RDW 17.7 % (11.9-15.9); WHITE BLOOD COUNT 13.8 K/mm3 (4.0-10.0)
[2023-01-29 08:34] LABS: CHLORIDE 116 mmol/L (98-107); POTASSIUM 3.5 mmol/L (3.5-5.1); SODIUM 140 mmol/L (136-145)
[2023-01-29 08:41] LABS: ALBUMIN 1.3 g/dl (3.4-5.0); ANION GAP 6 MMOL/L (8-16); BLOOD UREA NITROGEN 32.6 mg/dL (7-18); CO2 18 mmol/L (21-32); GLUCOSE,RANDOM 97 mg/dL (74-106)
[2023-01-29 08:44] LABS: CREATININE 1.5 mg/dL (0.55-1.3); SGOT/AST 21 U/L (15-37); SGPT/ALT 14 U/L (13-61)
[2023-01-29 08:45] LABS: BILIRUBIN,TOTAL 0.6 mg/dL (0.2-1); TOT PROT 5.3 g/dl (6.4-8.2)
[2023-01-29 08:47] LABS: ALK PHOS 110 U/L (45-117)
[2023-01-29 08:48] LABS: CALCIUM 6.9 mg/dL (8.5-10.1)
[2023-01-29] MEDS: PANTOPRAZOLE SODIUM 40 MG VIAL IVPUSH SCH ×2 (10:04→22:04)
[2023-01-29] MEDS: METOPROLOL TARTRATE 25 MG TABLET (FP) PEG SCH ×2 (10:10→22:19)
[2023-01-29] MEDS: SODIUM BICARBONATE 650 MG TABLET PO SCH ×2 (10:10→22:04)
[2023-01-29] MEDS: AMINO ACIDS/PROTEIN HYDROLYS 30 ML LIQUID.PKT PO SCH (10:11)
[2023-01-29] MEDS: COLLAGENASE CLOSTRIDIUM HIST. 30 GRAMS TUBE TP SCH (10:26)
[2023-01-29] MEDS ORDERED: AMINO ACIDS/PROTEIN HYDROLYS 30 ML LIQUID.PKT PO SCH (17:30)
[2023-01-29] MEDS: AMINO ACIDS/PROTEIN HYDROLYS 30 ML LIQUID.PKT GT SCH (18:02)
[2023-01-29] MEDS: WATER IVPB SCH (18:33)
[2023-01-29] MEDS: DEXTROSE 5% IVPB SCH (18:33)
[2023-01-29] MEDS: CEFTAROLINE FOSAMIL ACETATE IVPB SCH (18:33)
[2023-01-29] MEDS: DAPTOMYCIN 400 MG in SODIUM CHLORIDE 50 ML IVPB SCH (20:38)
[2023-01-30] MEDS: WATER IVPB SCH ×3 (02:01→17:36)
[2023-01-30] MEDS: CEFTAROLINE FOSAMIL ACETATE IVPB SCH ×3 (02:01→17:36)
[2023-01-30] MEDS: DEXTROSE 5% IVPB SCH ×3 (02:01→17:36)
[2023-01-30 06:38] LABS: HEMATOCRIT 27.1 % (35.4-49); HEMOGLOBIN 9.4 GM/dL (11.7-16.9); MCH 31.5 pg (25.7-33.7); MCHC 34.7 g/dl (32.0-35.9); MEAN CELL VOLUME 90.7 fl (80-96); MEAN PLT VOLUME 7.8 fl (7.5-11.1); PLATELET COUNT 202 10^3/uL (134-434); RBC 2.98 M/mm3 (4.00-5.60); RDW 17.7 % (11.9-15.9); WHITE BLOOD COUNT 14.6 K/mm3 (4.0-10.0)
[2023-01-30 07:06] LABS: POTASSIUM 3.9 mmol/L (3.5-5.1)
[2023-01-30 07:10] LABS: CALCIUM 7.1 mg/dL (8.5-10.1)
[2023-01-30 07:13] LABS: CREATININE 1.4 mg/dL (0.55-1.3)
[2023-01-30] MEDS: AMINO ACIDS/PROTEIN HYDROLYS 30 ML LIQUID.PKT GT SCH ×3 (08:13→16:51)
[2023-01-30] MEDS: PANTOPRAZOLE SODIUM 40 MG VIAL IVPUSH SCH ×2 (09:53→21:30)
[2023-01-30] MEDS: METOPROLOL TARTRATE 25 MG TABLET (FP) PEG SCH ×2 (09:53→21:29)
[2023-01-30] MEDS: SODIUM BICARBONATE 650 MG TABLET PO SCH ×2 (09:53→21:29)
[2023-01-30] MEDS: COLLAGENASE CLOSTRIDIUM HIST. 30 GRAMS TUBE TP SCH (09:53)
[2023-01-30] MEDS: DAPTOMYCIN 400 MG in SODIUM CHLORIDE 50 ML IVPB SCH (17:36)
[2023-01-31] MEDS: DEXTROSE 5% IVPB SCH ×3 (03:11→18:09)
[2023-01-31] MEDS: CEFTAROLINE FOSAMIL ACETATE IVPB SCH ×3 (03:11→18:09)
[2023-01-31] MEDS: WATER IVPB SCH ×3 (03:11→18:09)
[2023-01-31 07:08] LABS: BASO % 0.2 % (0-2.0); EOS % 0.5 % (0-4.5); HEMATOCRIT 23.9 % (35.4-49); HEMOGLOBIN 8.4 GM/dL (11.7-16.9); LYMPH % 11.3 % (8-40); MCH 31.9 pg (25.7-33.7); MCHC 35.1 g/dl (32.0-35.9); MEAN PLT VOLUME 7.3 fl (7.5-11.1); MONO % 4.5 % (3.8-10.2); NEUT % 83.5 % (42.8-82.8); PLATELET COUNT 196 10^3/uL (134-434); RBC 2.63 M/mm3 (4.00-5.60); RDW 17.6 % (11.9-15.9); WHITE BLOOD COUNT 14.4 K/mm3 (4.0-10.0)
[2023-01-31 07:30] LABS: CHLORIDE 113 mmol/L (98-107); POTASSIUM 3.8 mmol/L (3.5-5.1); SODIUM 138 mmol/L (136-145)
[2023-01-31 07:34] LABS: ALBUMIN 1.3 g/dl (3.4-5.0); ANION GAP 8 MMOL/L (8-16); BLOOD UREA NITROGEN 41.9 mg/dL (7-18); CO2 16 mmol/L (21-32); GLUCOSE,RANDOM 99 mg/dL (74-106)
[2023-01-31 07:37] LABS: CREATININE 1.4 mg/dL (0.55-1.3); SGOT/AST 28 U/L (15-37); SGPT/ALT 23 U/L (13-61)
[2023-01-31 07:38] LABS: BILIRUBIN,TOTAL 0.7 mg/dL (0.2-1)
[2023-01-31 07:39] LABS: TOT PROT 5.4 g/dl (6.4-8.2)
[2023-01-31 07:54] LABS: ALK PHOS 151 U/L (45-117); CALCIUM 6.6 mg/dL (8.5-10.1)
[2023-01-31] MEDS: SODIUM BICARBONATE 650 MG TABLET PO SCH ×2 (10:28→22:12)
[2023-01-31] MEDS: METOPROLOL TARTRATE 25 MG TABLET (FP) PEG SCH ×2 (10:29→22:12)
[2023-01-31] MEDS: PANTOPRAZOLE SODIUM 40 MG VIAL IVPUSH SCH ×2 (10:29→22:12)
[2023-01-31] MEDS: AMINO ACIDS/PROTEIN HYDROLYS 30 ML LIQUID.PKT GT SCH ×3 (10:30→17:11)
[2023-01-31] MEDS: COLLAGENASE CLOSTRIDIUM HIST. 30 GRAMS TUBE TP SCH (12:44)
[2023-01-31] MEDS: DAPTOMYCIN 400 MG in SODIUM CHLORIDE 50 ML IVPB SCH (17:30)
[2023-01-31] MEDS ORDERED: ACETAMINOPHEN 1000 MG/100 ML BAG IVPB ONE (21:27)
[2023-02-01] MEDS: CEFTAROLINE FOSAMIL ACETATE IVPB SCH ×3 (01:46→17:36)
[2023-02-01] MEDS: DEXTROSE 5% IVPB SCH ×3 (01:46→17:36)
[2023-02-01] MEDS: WATER IVPB SCH ×3 (01:46→17:36)
[2023-02-01] MEDS: AMINO ACIDS/PROTEIN HYDROLYS 30 ML LIQUID.PKT GT SCH ×3 (08:16→16:30)
[2023-02-01] MEDS: PANTOPRAZOLE SODIUM 40 MG VIAL IVPUSH SCH ×2 (09:19→21:49)
[2023-02-01] MEDS: METOPROLOL TARTRATE 25 MG TABLET (FP) PEG SCH ×2 (09:20→21:48)
[2023-02-01] MEDS: ACETAMINOPHEN 650 MG/20.3 ML ORAL SOLUTION (CUPS) PEG PRN ×3 (09:20→21:50)
[2023-02-01] MEDS: SODIUM BICARBONATE 650 MG TABLET PO SCH ×2 (09:20→21:49)
[2023-02-01] MEDS: COLLAGENASE CLOSTRIDIUM HIST. 30 GRAMS TUBE TP SCH (09:21)
[2023-02-01] MEDS: SILVER SULFADIAZINE 1% TOP CREAM 400 GM JAR TP SCH ×2 (10:24→21:57)
[2023-02-01 12:51] LABS: BASO % 0.2 % (0-2.0); CHLORIDE 110 mmol/L (98-107); EOS % 0.9 % (0-4.5); HEMATOCRIT 22.2 % (35.4-49); HEMOGLOBIN 7.9 GM/dL (11.7-16.9); LYMPH % 11.1 % (8-40); MCH 32.2 pg (25.7-33.7); MCHC 35.4 g/dl (32.0-35.9); MONO % 5.3 % (3.8-10.2); NEUT % 82.5 % (42.8-82.8); PLATELET COUNT 176 10^3/uL (134-434); POTASSIUM 3.8 mmol/L (3.5-5.1); RBC 2.44 M/mm3 (4.00-5.60); RDW 17.8 % (11.9-15.9); SODIUM 135 mmol/L (136-145); WHITE BLOOD COUNT 9.7 K/mm3 (4.0-10.0)
[2023-02-01 12:56] LABS: ALBUMIN 1.2 g/dl (3.4-5.0); ANION GAP 9 MMOL/L (8-16); CO2 16 mmol/L (21-32)
[2023-02-01 12:57] LABS: BLOOD UREA NITROGEN 45.6 mg/dL (7-18); GLUCOSE,RANDOM 121 mg/dL (74-106)
[2023-02-01 12:58] LABS: SGPT/ALT 27 U/L (13-61)
[2023-02-01 13:00] LABS: CREATININE 1.4 mg/dL (0.55-1.3); SGOT/AST 35 U/L (15-37); TOT PROT 5.3 g/dl (6.4-8.2)
[2023-02-01 13:01] LABS: ALK PHOS 177 U/L (45-117); BILIRUBIN,TOTAL 0.4 mg/dL (0.2-1)
[2023-02-01 13:04] LABS: CALCIUM 6.9 mg/dL (8.5-10.1)
[2023-02-01] MEDS: DAPTOMYCIN 400 MG in SODIUM CHLORIDE 50 ML IVPB SCH (17:36)
[2023-02-02] MEDS: CEFTAROLINE FOSAMIL ACETATE IVPB SCH ×3 (01:37→18:43)
[2023-02-02] MEDS: DEXTROSE 5% IVPB SCH ×3 (01:37→18:43)
[2023-02-02] MEDS: WATER IVPB SCH ×3 (01:37→18:43)
[2023-02-02 06:56] LABS: BASO % 0.2 % (0-2.0); EOS % 0.8 % (0-4.5); HEMATOCRIT 27.4 % (35.4-49); HEMOGLOBIN 9.3 GM/dL (11.7-16.9); LYMPH % 11.3 % (8-40); MEAN CELL VOLUME 94.2 fl (80-96); MEAN PLT VOLUME 8.2 fl (7.5-11.1); NEUT % 82.7 % (42.8-82.8); PLATELET COUNT 210 10^3/uL (134-434); RBC 2.91 M/mm3 (4.00-5.60); RDW 18.1 % (11.9-15.9); WHITE BLOOD COUNT 11.5 K/mm3 (4.0-10.0)
[2023-02-02 07:12] LABS: POTASSIUM 4.2 mmol/L (3.5-5.1)
[2023-02-02 07:15] LABS: CALCIUM 7.3 mg/dL (8.5-10.1)
[2023-02-02 07:16] LABS: BLOOD UREA NITROGEN 53.6 mg/dL (7-18)
[2023-02-02 07:18] LABS: CREATININE 1.5 mg/dL (0.55-1.3)
[2023-02-02 07:20] LABS: BILIRUBIN,TOTAL 0.4 mg/dL (0.2-1); TOT PROT 6.5 g/dl (6.4-8.2)
[2023-02-02 07:31] LABS: ALBUMIN 1.5 g/dl (3.4-5.0)
[2023-02-02] MEDS: COLLAGENASE CLOSTRIDIUM HIST. 30 GRAMS TUBE TP SCH (09:56)
[2023-02-02] MEDS: SILVER SULFADIAZINE 1% TOP CREAM 400 GM JAR TP SCH ×2 (09:57→21:43)
[2023-02-02] MEDS: AMINO ACIDS/PROTEIN HYDROLYS 30 ML LIQUID.PKT GT SCH ×3 (09:57→18:42)
[2023-02-02] MEDS: METOPROLOL TARTRATE 25 MG TABLET (FP) PEG SCH ×2 (09:57→21:42)
[2023-02-02] MEDS: PANTOPRAZOLE SODIUM 40 MG VIAL IVPUSH SCH ×2 (09:59→21:42)
[2023-02-02] MEDS: SODIUM BICARBONATE 650 MG TABLET PO SCH ×2 (11:33→21:42)
[2023-02-02] MEDS: DAPTOMYCIN 400 MG in SODIUM CHLORIDE 50 ML IVPB SCH (18:42)
[2023-02-03] MEDS: WATER IVPB SCH ×3 (01:34→17:51)
[2023-02-03] MEDS: CEFTAROLINE FOSAMIL ACETATE IVPB SCH ×3 (01:34→17:51)
[2023-02-03] MEDS: DEXTROSE 5% IVPB SCH ×3 (01:34→17:51)
[2023-02-03] MEDS: AMINO ACIDS/PROTEIN HYDROLYS 30 ML LIQUID.PKT GT SCH ×3 (08:04→17:51)
[2023-02-03] MEDS: COLLAGENASE CLOSTRIDIUM HIST. 30 GRAMS TUBE TP SCH (10:27)
[2023-02-03] MEDS: SILVER SULFADIAZINE 1% TOP CREAM 400 GM JAR TP SCH ×2 (10:27→22:59)
[2023-02-03] MEDS: PANTOPRAZOLE SODIUM 40 MG VIAL IVPUSH SCH ×2 (10:28→22:20)
[2023-02-03] MEDS: METOPROLOL TARTRATE 25 MG TABLET (FP) PEG SCH (10:28)
[2023-02-03] MEDS: SODIUM BICARBONATE 650 MG TABLET PO SCH (10:28)
[2023-02-03] MEDS: ALBUTEROL SO4 2.5/IPRATROPIUM 0.5 INH SOL 3 ML VIAL.NEB. NEB SCH ×3 (12:50→20:05)
[2023-02-03] MEDS: DAPTOMYCIN 400 MG in SODIUM CHLORIDE 50 ML IVPB SCH (17:51)
[2023-02-04] MEDS: METOPROLOL TARTRATE 25 MG TABLET (FP) PEG SCH ×3 (00:11→22:02)
[2023-02-04] MEDS: SODIUM BICARBONATE 650 MG TABLET PO SCH ×3 (00:11→22:02)
[2023-02-04] MEDS: WATER IVPB SCH ×3 (03:16→17:31)
[2023-02-04] MEDS: CEFTAROLINE FOSAMIL ACETATE IVPB SCH ×3 (03:16→17:31)
[2023-02-04] MEDS: DEXTROSE 5% IVPB SCH ×3 (03:16→17:31)
[2023-02-04] MEDS: ALBUTEROL SO4 2.5/IPRATROPIUM 0.5 INH SOL 3 ML VIAL.NEB. NEB SCH ×4 (07:58→20:05)
[2023-02-04] MEDS: AMINO ACIDS/PROTEIN HYDROLYS 30 ML LIQUID.PKT GT SCH ×3 (08:58→17:30)
[2023-02-04] MEDS: AMINO ACIDS 4.25%/D5W 1,000 ML IV SCH (10:14)
[2023-02-04] MEDS: PANTOPRAZOLE SODIUM 40 MG VIAL IVPUSH SCH ×2 (10:15→22:02)
[2023-02-04] MEDS: SILVER SULFADIAZINE 1% TOP CREAM 400 GM JAR TP SCH ×2 (10:17→22:04)
[2023-02-04] MEDS: COLLAGENASE CLOSTRIDIUM HIST. 30 GRAMS TUBE TP SCH (10:18)
[2023-02-04] MEDS: DAPTOMYCIN 400 MG in SODIUM CHLORIDE 50 ML IVPB SCH (17:31)
[2023-02-05] MEDS: WATER IVPB SCH ×3 (02:45→17:35)
[2023-02-05] MEDS: CEFTAROLINE FOSAMIL ACETATE IVPB SCH ×3 (02:45→17:35)
[2023-02-05] MEDS: DEXTROSE 5% IVPB SCH ×3 (02:45→17:35)
[2023-02-05] MEDS: AMINO ACIDS 4.25%/D5W 1,000 ML IV SCH ×2 (03:26→08:42)
[2023-02-05 07:01] LABS: POTASSIUM 3.7 mmol/L (3.5-5.1)
[2023-02-05 07:05] LABS: CALCIUM 8.1 mg/dL (8.5-10.1)
[2023-02-05 07:06] LABS: ALBUMIN 1.2 g/dl (3.4-5.0); BLOOD UREA NITROGEN 75.4 mg/dL (7-18)
[2023-02-05 07:09] LABS: CREATININE 1.7 mg/dL (0.55-1.3)
[2023-02-05 07:10] LABS: BILIRUBIN,TOTAL 0.6 mg/dL (0.2-1); TOT PROT 5.4 g/dl (6.4-8.2)
[2023-02-05] MEDS: ALBUTEROL SO4 2.5/IPRATROPIUM 0.5 INH SOL 3 ML VIAL.NEB. NEB SCH ×4 (07:40→20:06)
[2023-02-05] MEDS: AMINO ACIDS/PROTEIN HYDROLYS 30 ML LIQUID.PKT GT SCH ×3 (08:43→17:23)
[2023-02-05] MEDS: METOPROLOL TARTRATE 25 MG TABLET (FP) PEG SCH ×2 (09:38→21:02)
[2023-02-05] MEDS: SODIUM BICARBONATE 650 MG TABLET PO SCH ×2 (09:38→22:02)
[2023-02-05] MEDS: PANTOPRAZOLE SODIUM 40 MG VIAL IVPUSH SCH ×2 (09:38→21:58)
[2023-02-05] MEDS: SILVER SULFADIAZINE 1% TOP CREAM 400 GM JAR TP SCH ×2 (09:39→22:00)
[2023-02-05] MEDS: COLLAGENASE CLOSTRIDIUM HIST. 30 GRAMS TUBE TP SCH (09:40)
[2023-02-05] MEDS ORDERED: D5-1/3NS+20 MEQ KCL - 20 MEQ/1,000 ML INFUS.BAG IV SCH (11:15)
[2023-02-05 12:31] LABS: BASO % 0.3 % (0-2.0); EOS % 0.8 % (0-4.5); HEMATOCRIT 19.6 % (35.4-49); LYMPH % 9.1 % (8-40); MCH 31.8 pg (25.7-33.7); MCHC 33.8 g/dl (32.0-35.9); MEAN CELL VOLUME 94.2 fl (80-96); MEAN PLT VOLUME 7.4 fl (7.5-11.1); MONO % 4.6 % (3.8-10.2); NEUT % 85.2 % (42.8-82.8); PLATELET COUNT 170 10^3/uL (134-434); RBC 2.08 M/mm3 (4.00-5.60); RDW 18.4 % (11.9-15.9); WHITE BLOOD COUNT 8.6 K/mm3 (4.0-10.0)
[2023-02-05 12:38] LABS: HEMOGLOBIN 6.6 GM/dL (11.7-16.9)
[2023-02-05] MEDS: D5-1/2NS+20 MEQ KCL - 20 MEQ/1,000 ML INFUS.BAG IV SCH (17:23)
[2023-02-05] MEDS: DAPTOMYCIN 400 MG in SODIUM CHLORIDE 50 ML IVPB SCH (17:35)
[2023-02-05] MEDS: SODIUM BICARBONATE 8.4% 50 MEQ/50 ML DISP.SYRIN IV SCH ×2 (17:38→21:02)
[2023-02-05] MEDS: ASCORBIC ACID 250 MG TABLET (FP) PEG SCH (22:30)
[2023-02-06] MEDS: SODIUM BICARBONATE 8.4% 50 MEQ/50 ML DISP.SYRIN IV SCH (01:02)
[2023-02-06] MEDS: DEXTROSE 5% IVPB SCH ×3 (02:02→20:03)
[2023-02-06] MEDS: WATER IVPB SCH ×3 (02:02→20:03)
[2023-02-06] MEDS: CEFTAROLINE FOSAMIL ACETATE IVPB SCH ×3 (02:02→20:03)
[2023-02-06 07:20] LABS: BASO % 0.2 % (0-2.0); EOS % 1.3 % (0-4.5); HEMATOCRIT 19.8 % (35.4-49); LYMPH % 6.5 % (8-40); MCH 32.2 pg (25.7-33.7); MEAN CELL VOLUME 92.1 fl (80-96); MONO % 4.8 % (3.8-10.2); NEUT % 87.2 % (42.8-82.8); PLATELET COUNT 190 10^3/uL (134-434); RBC 2.15 M/mm3 (4.00-5.60); RDW 18.3 % (11.9-15.9); WHITE BLOOD COUNT 7.3 K/mm3 (4.0-10.0)
[2023-02-06 07:22] LABS: HEMOGLOBIN 6.9 GM/dL (11.7-16.9)
[2023-02-06 07:40] LABS: POTASSIUM 3.6 mmol/L (3.5-5.1)
[2023-02-06] MEDS: ALBUTEROL SO4 2.5/IPRATROPIUM 0.5 INH SOL 3 ML VIAL.NEB. NEB SCH ×4 (07:40→20:01)
[2023-02-06 07:44] LABS: CALCIUM 8.2 mg/dL (8.5-10.1)
[2023-02-06 07:45] LABS: ALBUMIN 1.3 g/dl (3.4-5.0); BLOOD UREA NITROGEN 79.6 mg/dL (7-18)
[2023-02-06 07:48] LABS: CREATININE 1.8 mg/dL (0.55-1.3)
[2023-02-06 07:50] LABS: BILIRUBIN,TOTAL 0.6 mg/dL (0.2-1); TOT PROT 5.7 g/dl (6.4-8.2)
[2023-02-06] MEDS: SODIUM BICARBONATE 650 MG TABLET PO SCH ×2 (09:22→22:26)
[2023-02-06] MEDS: MULTIVIT-MINERALS ORAL LIQUID PO SCH (09:22)
[2023-02-06] MEDS: AMINO ACIDS/PROTEIN HYDROLYS 30 ML LIQUID.PKT GT SCH ×3 (09:22→18:12)
[2023-02-06] MEDS: PANTOPRAZOLE SODIUM 40 MG VIAL IVPUSH SCH ×2 (09:22→22:26)
[2023-02-06] MEDS: SILVER SULFADIAZINE 1% TOP CREAM 400 GM JAR TP SCH ×2 (09:23→21:45)
[2023-02-06] MEDS: ASCORBIC ACID 250 MG TABLET (FP) PEG SCH ×2 (09:23→22:26)
[2023-02-06] MEDS: METOPROLOL TARTRATE 25 MG TABLET (FP) PEG SCH ×2 (10:15→21:45)
[2023-02-06] MEDS: LOPERAMIDE HCL 2 MG CAPSULE PO PRN (12:41)
[2023-02-06] MEDS: ACETAMINOPHEN 650 MG/20.3 ML ORAL SOLUTION (CUPS) PEG PRN (15:06)
[2023-02-06] MEDS: COLLAGENASE CLOSTRIDIUM HIST. 30 GRAMS TUBE TP SCH (18:14)
[2023-02-06] MEDS: D5-1/2NS+20 MEQ KCL - 20 MEQ/1,000 ML INFUS.BAG IV SCH (18:14)
[2023-02-06] MEDS: DAPTOMYCIN 400 MG in SODIUM CHLORIDE 50 ML IVPB SCH (20:05)
[2023-02-06] MEDS ORDERED: FUROSEMIDE 40 MG/4 ML INJECTABLE VIAL ONE (22:24)
[2023-02-06] MEDS: FUROSEMIDE 40 MG/4 ML INJECTABLE VIAL IVPUSH ONE (22:25)
[2023-02-07] MEDS: FUROSEMIDE 40 MG/4 ML INJECTABLE VIAL IVPUSH ONE (02:06)
[2023-02-07] MEDS: WATER IVPB SCH ×3 (02:19→17:32)
[2023-02-07] MEDS: DEXTROSE 5% IVPB SCH ×3 (02:19→17:32)
[2023-02-07] MEDS: CEFTAROLINE FOSAMIL ACETATE IVPB SCH ×3 (02:19→17:32)
[2023-02-07] MEDS: ALBUTEROL SO4 2.5/IPRATROPIUM 0.5 INH SOL 3 ML VIAL.NEB. NEB SCH ×4 (07:45→20:37)
[2023-02-07] MEDS: AMINO ACIDS/PROTEIN HYDROLYS 30 ML LIQUID.PKT GT SCH ×3 (08:52→16:44)
[2023-02-07] MEDS: ACETAMINOPHEN 650 MG/20.3 ML ORAL SOLUTION (CUPS) PEG PRN ×2 (09:20→16:22)
[2023-02-07] MEDS: SODIUM BICARBONATE 650 MG TABLET PO SCH ×2 (09:21→23:27)
[2023-02-07] MEDS: ASCORBIC ACID 250 MG TABLET (FP) PEG SCH ×2 (09:21→23:27)
[2023-02-07] MEDS: METOPROLOL TARTRATE 25 MG TABLET (FP) PEG SCH ×2 (09:21→23:26)
[2023-02-07] MEDS: PANTOPRAZOLE SODIUM 40 MG VIAL IVPUSH SCH ×2 (09:21→23:26)
[2023-02-07] MEDS: COLLAGENASE CLOSTRIDIUM HIST. 30 GRAMS TUBE TP SCH (09:22)
[2023-02-07] MEDS: SILVER SULFADIAZINE 1% TOP CREAM 400 GM JAR TP SCH ×2 (09:22→23:27)
[2023-02-07] MEDS: MULTIVIT-MINERALS ORAL LIQUID PO SCH (09:22)
[2023-02-07 10:42] LABS: BASO % 0.4 % (0-2.0); EOS % 2.9 % (0-4.5); HEMATOCRIT 27.5 % (35.4-49); HEMOGLOBIN 9.7 GM/dL (11.7-16.9); LYMPH % 10.2 % (8-40); MCH 32.2 pg (25.7-33.7); MCHC 35.2 g/dl (32.0-35.9); MEAN CELL VOLUME 91.7 fl (80-96); MEAN PLT VOLUME 7.9 fl (7.5-11.1); MONO % 5.2 % (3.8-10.2); NEUT % 81.3 % (42.8-82.8); PLATELET COUNT 238 10^3/uL (134-434); RDW 19.5 % (11.9-15.9); WHITE BLOOD COUNT 6.6 K/mm3 (4.0-10.0)
[2023-02-07 10:54] LABS: POTASSIUM 4.4 mmol/L (3.5-5.1)
[2023-02-07 10:56] LABS: CALCIUM 8.4 mg/dL (8.5-10.1)
[2023-02-07 10:57] LABS: ALBUMIN 1.3 g/dl (3.4-5.0); BLOOD UREA NITROGEN 74.5 mg/dL (7-18)
[2023-02-07 11:00] LABS: CREATININE 1.9 mg/dL (0.55-1.3)
[2023-02-07 11:02] LABS: BILIRUBIN,TOTAL 0.7 mg/dL (0.2-1); TOT PROT 5.9 g/dl (6.4-8.2)
[2023-02-07] MEDS: LOPERAMIDE HCL 2 MG CAPSULE PO PRN (12:17)
[2023-02-07] MEDS: D5-1/2NS+20 MEQ KCL - 20 MEQ/1,000 ML INFUS.BAG IV SCH ×2 (13:54→18:06)
[2023-02-07] MEDS: DAPTOMYCIN 400 MG in SODIUM CHLORIDE 50 ML IVPB SCH (17:32)
[2023-02-08] MEDS: CEFTAROLINE FOSAMIL ACETATE IVPB SCH ×3 (02:16→17:48)
[2023-02-08] MEDS: DEXTROSE 5% IVPB SCH ×3 (02:16→17:48)
[2023-02-08] MEDS: WATER IVPB SCH ×3 (02:16→17:48)
[2023-02-08] MEDS: ALBUTEROL SO4 2.5/IPRATROPIUM 0.5 INH SOL 3 ML VIAL.NEB. NEB SCH ×4 (08:10→20:01)
[2023-02-08] MEDS: METOPROLOL TARTRATE 25 MG TABLET (FP) PEG SCH ×2 (10:09→21:20)
[2023-02-08] MEDS: SODIUM BICARBONATE 650 MG TABLET PO SCH ×2 (10:09→21:26)
[2023-02-08] MEDS: PANTOPRAZOLE SODIUM 40 MG VIAL IVPUSH SCH ×2 (10:09→21:26)
[2023-02-08] MEDS: AMINO ACIDS/PROTEIN HYDROLYS 30 ML LIQUID.PKT GT SCH ×3 (10:09→17:20)
[2023-02-08] MEDS: SILVER SULFADIAZINE 1% TOP CREAM 400 GM JAR TP SCH ×2 (10:10→21:27)
[2023-02-08] MEDS: ASCORBIC ACID 250 MG TABLET (FP) PEG SCH ×2 (10:10→21:26)
[2023-02-08] MEDS: MULTIVIT-MINERALS ORAL LIQUID PO SCH (10:10)
[2023-02-08] MEDS: COLLAGENASE CLOSTRIDIUM HIST. 30 GRAMS TUBE TP SCH (10:11)
[2023-02-08] MEDS: D5-1/2NS+20 MEQ KCL - 20 MEQ/1,000 ML INFUS.BAG IV SCH (17:19)
[2023-02-08] MEDS: DAPTOMYCIN 400 MG in SODIUM CHLORIDE 50 ML IVPB SCH (17:48)
[2023-02-08] MEDS: ACETAMINOPHEN 650 MG/20.3 ML ORAL SOLUTION (CUPS) PEG PRN (17:58)
[2023-02-09] MEDS: DEXTROSE 5% IVPB SCH ×3 (01:40→20:22)
[2023-02-09] MEDS: WATER IVPB SCH ×3 (01:40→20:22)
[2023-02-09] MEDS: CEFTAROLINE FOSAMIL ACETATE IVPB SCH ×3 (01:40→20:22)
[2023-02-09] MEDS: ALBUTEROL SO4 2.5/IPRATROPIUM 0.5 INH SOL 3 ML VIAL.NEB. NEB SCH ×4 (07:57→19:59)
[2023-02-09 09:49] LABS: BASO % 0.4 % (0-2.0); EOS % 3.6 % (0-4.5); HEMATOCRIT 26.2 % (35.4-49); HEMOGLOBIN 9.2 GM/dL (11.7-16.9); LYMPH % 12.3 % (8-40); MCH 32.3 pg (25.7-33.7); MCHC 35.3 g/dl (32.0-35.9); MEAN CELL VOLUME 91.5 fl (80-96); MEAN PLT VOLUME 7.4 fl (7.5-11.1); MONO % 5.6 % (3.8-10.2); NEUT % 78.1 % (42.8-82.8); PLATELET COUNT 243 10^3/uL (134-434); RBC 2.86 M/mm3 (4.00-5.60); RDW 19.1 % (11.9-15.9); WHITE BLOOD COUNT 6.2 K/mm3 (4.0-10.0)
[2023-02-09 10:17] LABS: POTASSIUM 4.5 mmol/L (3.5-5.1)
[2023-02-09 10:18] LABS: CALCIUM 7.7 mg/dL (8.5-10.1)
[2023-02-09 10:19] LABS: ALBUMIN 1.2 g/dl (3.4-5.0); BLOOD UREA NITROGEN 66.2 mg/dL (7-18)
[2023-02-09 10:22] LABS: CREATININE 1.5 mg/dL (0.55-1.3)
[2023-02-09 10:24] LABS: BILIRUBIN,TOTAL 0.3 mg/dL (0.2-1); TOT PROT 5.6 g/dl (6.4-8.2)
[2023-02-09] MEDS: AMINO ACIDS/PROTEIN HYDROLYS 30 ML LIQUID.PKT GT SCH ×3 (10:46→17:27)
[2023-02-09] MEDS: COLLAGENASE CLOSTRIDIUM HIST. 30 GRAMS TUBE TP SCH (10:49)
[2023-02-09] MEDS: METOPROLOL TARTRATE 25 MG TABLET (FP) PEG SCH ×2 (10:49→22:12)
[2023-02-09] MEDS: MULTIVIT-MINERALS ORAL LIQUID PO SCH (10:49)
[2023-02-09] MEDS: PANTOPRAZOLE SODIUM 40 MG VIAL IVPUSH SCH ×2 (10:49→22:13)
[2023-02-09] MEDS: SILVER SULFADIAZINE 1% TOP CREAM 400 GM JAR TP SCH ×2 (10:50→22:13)
[2023-02-09] MEDS: ASCORBIC ACID 250 MG TABLET (FP) PEG SCH ×2 (10:50→22:30)
[2023-02-09] MEDS: SODIUM BICARBONATE 650 MG TABLET PO SCH ×2 (10:50→22:12)
[2023-02-09] MEDS: D5-1/2NS+20 MEQ KCL - 20 MEQ/1,000 ML INFUS.BAG IV SCH (17:27)
[2023-02-09] MEDS: ACETAMINOPHEN 650 MG/20.3 ML ORAL SOLUTION (CUPS) PEG PRN (17:38)
[2023-02-09] MEDS: DAPTOMYCIN 400 MG in SODIUM CHLORIDE 50 ML IVPB SCH (17:42)
[2023-02-09] MEDS: LOPERAMIDE HCL 2 MG CAPSULE PO PRN (22:30)
[2023-02-10] MEDS: WATER IVPB SCH ×2 (02:58→11:02)
[2023-02-10] MEDS: DEXTROSE 5% IVPB SCH ×2 (02:58→11:02)
[2023-02-10] MEDS: CEFTAROLINE FOSAMIL ACETATE IVPB SCH ×2 (02:58→11:02)
[2023-02-10] MEDS: D5-1/2NS+20 MEQ KCL - 20 MEQ/1,000 ML INFUS.BAG IV SCH ×3 (05:41→18:15)
[2023-02-10 07:42] LABS: BASO % 0.4 % (0-2.0); EOS % 3.6 % (0-4.5); HEMATOCRIT 29.2 % (35.4-49); HEMOGLOBIN 10.2 GM/dL (11.7-16.9); LYMPH % 15.9 % (8-40); MEAN CELL VOLUME 91.6 fl (80-96); MEAN PLT VOLUME 7.7 fl (7.5-11.1); MONO % 5.6 % (3.8-10.2); NEUT % 74.5 % (42.8-82.8); PLATELET COUNT 258 10^3/uL (134-434); RBC 3.19 M/mm3 (4.00-5.60); RDW 18.9 % (11.9-15.9); WHITE BLOOD COUNT 7.3 K/mm3 (4.0-10.0)
[2023-02-10] MEDS: ALBUTEROL SO4 2.5/IPRATROPIUM 0.5 INH SOL 3 ML VIAL.NEB. NEB SCH ×4 (07:46→20:00)
[2023-02-10 07:58] LABS: POTASSIUM 4.3 mmol/L (3.5-5.1)
[2023-02-10 08:03] LABS: CALCIUM 7.9 mg/dL (8.5-10.1)
[2023-02-10 08:04] LABS: ALBUMIN 1.3 g/dl (3.4-5.0); BLOOD UREA NITROGEN 62.6 mg/dL (7-18)
[2023-02-10 08:07] LABS: CREATININE 1.5 mg/dL (0.55-1.3)
[2023-02-10 08:08] LABS: BILIRUBIN,TOTAL 0.4 mg/dL (0.2-1)
[2023-02-10] MEDS: AMINO ACIDS/PROTEIN HYDROLYS 30 ML LIQUID.PKT GT SCH ×3 (08:10→18:08)
[2023-02-10] MEDS: METOPROLOL TARTRATE 25 MG TABLET (FP) PEG SCH ×2 (10:59→22:25)
[2023-02-10] MEDS: SODIUM BICARBONATE 650 MG TABLET PO SCH ×2 (10:59→22:25)
[2023-02-10] MEDS: MULTIVIT-MINERALS ORAL LIQUID PO SCH (10:59)
[2023-02-10] MEDS: PANTOPRAZOLE SODIUM 40 MG VIAL IVPUSH SCH (10:59)
[2023-02-10] MEDS: ASCORBIC ACID 250 MG TABLET (FP) PEG SCH ×2 (11:01→22:47)
[2023-02-10] MEDS: COLLAGENASE CLOSTRIDIUM HIST. 30 GRAMS TUBE TP SCH (11:08)
[2023-02-10] MEDS: SILVER SULFADIAZINE 1% TOP CREAM 400 GM JAR TP SCH ×2 (11:08→22:26)
[2023-02-10] MEDS: DAPTOMYCIN 400 MG in SODIUM CHLORIDE 50 ML IVPB SCH (18:08)
[2023-02-10] MEDS: PANTOPRAZOLE 40 MG TABLET PO SCH (22:26)
[2023-02-10] MEDS ORDERED: PANTOPRAZOLE SODIUM 40 MG VIAL IVPUSH ONE (22:34)
[2023-02-11 05:28] VITALS: RESP 18
[2023-02-11] MEDS: ALBUTEROL SO4 2.5/IPRATROPIUM 0.5 INH SOL 3 ML VIAL.NEB. NEB SCH ×3 (07:40→15:20)
[2023-02-11] MEDS: METOPROLOL TARTRATE 25 MG TABLET (FP) PEG SCH (10:39)
[2023-02-11] MEDS: SODIUM BICARBONATE 650 MG TABLET PO SCH (10:39)
[2023-02-11] MEDS: AMINO ACIDS/PROTEIN HYDROLYS 30 ML LIQUID.PKT GT SCH ×3 (10:39→17:30)
[2023-02-11] MEDS: ASCORBIC ACID 250 MG TABLET (FP) PEG SCH (10:40)
[2023-02-11] MEDS: MULTIVIT-MINERALS ORAL LIQUID PO SCH (10:40)
[2023-02-11] MEDS: SILVER SULFADIAZINE 1% TOP CREAM 400 GM JAR TP SCH (10:41)
[2023-02-11] MEDS: PANTOPRAZOLE 40 MG TABLET PO SCH (10:41)
[2023-02-11] MEDS: COLLAGENASE CLOSTRIDIUM HIST. 30 GRAMS TUBE TP SCH (10:41)
[2023-02-11] MEDS: ACETAMINOPHEN 650 MG/20.3 ML ORAL SOLUTION (CUPS) PEG PRN (13:24)
[2023-02-11] MEDS: DAPTOMYCIN 400 MG in SODIUM CHLORIDE 50 ML IVPB SCH (17:30)
[2023-02-11 18:04] VITALS: BP 108/55; PULSE 68; TEMP 97.8
== END 2023-02-11 19:05 | disposition home or self-care (01) | DRG 871 ==
LOC: JER 20:38 → JERBED 01-20 01:09 → J4W 01-20 20:24 → J4S 01-21 15:59
PROVIDERS: ADMIT Internal Medicine; ATTEND Family Medicine
PROC: 30233N1 Transfusion of Nonautologous Red Blood Cells into Peripheral Vein, Percutaneous Approach (ICD-10-PCS; 2023-01-20)
PROC: 02HV33Z Insertion of Infusion Device into Superior Vena Cava, Percutaneous Approach (ICD-10-PCS; principal; 2023-02-11)
DX: A41.02 Sepsis due to Methicillin resistant Staphylococcus aureus (principal); J18.9 Pneumonia, unspecified organism; L89.154 Pressure ulcer of sacral region, stage 4; J96.01 Acute respiratory failure with hypoxia; E87.20 Acidosis, unspecified; E87.0 Hyperosmolality and hypernatremia; N17.9 Acute kidney failure, unspecified; N39.0 Urinary tract infection, site not specified; K56.7 Ileus, unspecified; R64 Cachexia; Z68.1 Body mass index [BMI] 19.9 or less, adult; K21.9 Gastro-esophageal reflux disease without esophagitis; I25.10 Atherosclerotic heart disease of native coronary artery without angina pectoris; D72.829 Elevated white blood cell count, unspecified; B96.4 Proteus (mirabilis) (morganii) as the cause of diseases classified elsewhere; B95.2 Enterococcus as the cause of diseases classified elsewhere; E87.5 Hyperkalemia; E87.6 Hypokalemia; E88.09 Other disorders of plasma-protein metabolism, not elsewhere classified; I12.9 Hypertensive chronic kidney disease with stage 1 through stage 4 chronic kidney disease, or unspecified chronic kidney disease; N18.9 Chronic kidney disease, unspecified; D64.9 Anemia, unspecified; F03.90 Unspecified dementia, unspecified severity, without behavioral disturbance, psychotic disturbance, mood disturbance, and anxiety; E78.5 Hyperlipidemia, unspecified; R80.8 Other proteinuria; Z93.1 Gastrostomy status; Z85.51 Personal history of malignant neoplasm of bladder
CPT/HCPCS: 0241U-QW; 36415; 36430; 36569; 36600; 49450; 71045-TC-FY; 74018-TC-FY; 74176-TC; 80048; 80053; 81003; 82272; 82550; 82803; 82962; 83540; 83550; 83605; 83735; 83880; 84100; 84484; 85025; 85027; 85610; 85730; 86850; 86900; 86901; 86922; 87040; 87070; 87077; 87086; 87186; 87205; 87899; 93005; 93010; 93306-TC; 94640; 99285-25; C9803-CS; G0480; J0878; J3480; P9038; P9058; U0003; U0005